=== PATIENT | female | born 1955 | race Caucasian/White ===

== ENCOUNTER 2016-04-10 08:12 | Inpatient (IN) | payer OTHER ==
[~2016-04-10] VITALS: Ht 139.7 cm; Wt 72.0 kg
[2016-04-10] VITALS (7 sets, daily range): BP systolic 92–117; BP diastolic 46–62
[~2016-04-10 08:12] MED LIST: ADVAIR HFA120 INHALA IH; ALBUTEROL SULF8.5 GM IH; AMARYL1 MG PO; AMITRIPTYLINE H25 MG PO; AMITRIPTYLINE100 MG PO; AMITRIPTYLINE150 MG PO; ASPIR 8181 M1 PO; ASPIRIN325 MG PO; AUGMENTIN500 MG PO; BACTRIM,SEPT1 TABLET PO; BUDESONIDE0.5 MG/2 M IH; CATAPRES0.1 MG PO; CEFTIN500 MG PO; CHANTIX0.5 MG PO; CIPRO250 MG PO; CLONAZEPAM0.5 MG PO; CLONIDINE HCL0.1 MG PO; COLACE100 MG PO; DELTASONE10 MG PO; DULCOLAX5 MG PO; DURAGESIC50 MCG TD; Duragesic TD; ELAVIL150 MG PO; ELAVIL25 MG PO; ENDOCET 5-3251 EACH PO; ENDOCET 7.5-501 EACH PO; ESCITALOPRAM OX20 MG PO; Elavil PO; FENTANYL1 EAC1 TD; FLAGYL250 MG PO; FLONASE16 G1 BOTH NARES; GABAPENTIN100 MG PO; GABAPENTIN300 MG PO; GABAPENTIN400 MG PO; GLIMEPIRIDE1 MG PO; GLIMEPIRIDE2 MG PO; GLUCOPHAGE XR750 MG PO; GLUCOPHAGE1000 M1 PO; GLUCOPHAGE1000 MG PO; KEFLEX500 MG PO; KLONOPIN0.5 M1 PO; KlonoPIN PO; LANTUS 10100 UNITS/ SC; LANTUS 3 M100 UNITS/ SC; LANTUS 3 M100 UNITS1 SC; LANTUS100 UNIT/1 SQ; LAXATIVE SUPPO1 EACH PR; LEVAQUIN500 MG PO; LEVAQUIN750 MG PO; LEVEMIR FL100 UNIT/1 SC; LEXAPRO20 MG PO; LISINOPRIL10 MG PO; LISINOPRIL5 MG PO; LO-DOSE ASPIRIN81 M2 PO; LOPRESSOR25 MG PO; LOVENOX40 MG/0.4 SC; METFORMIN HCL750 MG PO; METOPROLOL TART25 MG PO; MUCINEX600 MG PO; MUCUS ER600 MG PO; Medrol Dosepak PO; NEURONTIN300 MG PO; NEURONTIN400 MG PO; NOVOLIN N100 UNIT/1 SQ; NOVOLIN N100 UNITS/ SC; Neurontin PO; OXYCODONE-ACET1 EACH PO; OXYCODONE-APAP1 EAC6 PO; PERCOCET 5/31 TABLET PO; PERCOCET 7.51 TABLET PO; PLAVIX75 MG PO; PRAVASTATIN SOD80 MG PO; PREDNISONE10 MG PO; PREDNISONE20 MG PO; PREDNISONE50 MG PO; PROAIR HFA8.5 GM IH; PROPOXYPHENE HC65 MG PO; PROVENTIL2.5 MG/3 M IH; PULMICORT0.5 MG/21 IH; Percocet 7.5/500,End PO; Proventil,Ventolin H IH; ROBITUSSIN100 MG/5 M PO; SIMVASTATIN40 M1 PO; SIMVASTATIN40 MG PO; SPIRIVA1 INHALATI IH; TESSALON PERLE100 MG PO; VENTOLIN HFA18 GM IH; ZESTRIL,PRINIVI20 MG PO; ZESTRIL20 MG PO; ZESTRIL5 MG PO; ZITHROMAX250 MG PO; ZOCOR40 MG PO; ZOFRAN4 MG PO; ZYRTEC10 M2 PO; Zestril,Prinivil PO; Zocor PO
[2016-04-10 09:05] LABS: POINT-OF-CARE METER ID UU13113702
[2016-04-10 09:44] LABS: HEMATOCRIT 36.2 % (36.0-46.0); MCH 28.8 PG (29.0-34.0); MCHC 30.1 G/DL (30.0-36.0); MCV 95.5 FL (83-99); MEAN PLAT.VOLUME 10.3 uM^3 (9.5-12.4); PLATELET COUNT 481 K/uL (156-360); RBC DIS.WIDTH-CV 18.8 % (11.8-14.6); RBC DIS.WIDTH-SD 63.5 % (39-53); RED BLOOD COUNT 3.79 M/uL (3.80-5.20); WHITE BLOOD COUNT 21.1 K/uL (4.1-10.2)
[2016-04-10 09:47] LABS: EOSINOPHIL (%) 0 % (0-5); IMMATURE GRANULOCYTE (%) 0.5 % (0.0-0.7); IMMATURE GRANULOCYTE COUNT 1.1 K/uL; LYMPHOCYTE COUNT 1.3 K/uL (1.0-2.8); MONOCYTE (%) 5.5 % (3-12); MONOCYTE COUNT 1.2 K/uL (0-0.8); NEUTROPHIL (%) 87.5 % (45-76); NEUTROPHIL COUNT 18.5 K/uL (1.8-6.4)
[2016-04-10 09:57] LABS: CHLORIDE 102 mEq/L (99-109); POTASSIUM 5.7 mEq/L (3.7-5.4); SODIUM 139 mEq/L (136-147)
[2016-04-10 09:59] LABS: GLUCOSE 191 mg/dL (70-99)
[2016-04-10 10:01] LABS: ANION GAP 20 MEQ/L (2-14); TOTAL BILIRUBIN 0.5 mg/dL (0.0-1.0)
[2016-04-10 10:03] LABS: ALKALINE PHOSPHATASE 91 IU/L (3-129); GFR ESTIMATE (CALCULATED) 30 mL/min/
[2016-04-10 10:04] LABS: UREA NITROGEN (BUN) 28 mg/dL (9-23)
[2016-04-10 10:35] LABS: C DIFF TOXIN NEGATIVE (NEGATIVE); PROBE CHECK PASS; SPECIMEN PROCESSING CONTROL PASS
[2016-04-10 11:15] LABS: ADD MIUA? YES; BILIRUBIN MODERATE; BLOOD NEGATIVE; COLOR AMBER ((YELLOW)); GLUCOSE (STRIP) NEGATIVE; KETONES 5; LEUKOCYTES TRACE; NITRITE NEGATIVE; PROTEIN (STRIP) 100; SPECIFIC GRAVITY 1.027 (1.000-1.030)
[2016-04-10 11:49] LABS: BACTERIA RARE /HPF; EPITHELIAL CELLS RARE /HPF; MUCUS TRACE /LPF; RED BLOOD CELLS 0-5 /HPF (0-5); UCUL ADDED? NO; WHITE BLOOD CELLS 0-5 /HPF (0-5)
[2016-04-10 12:11] LABS: ICTOTEST NEGATIVE
[2016-04-10] MEDS ORDERED: GLUCOPHAGE850 MG PO (12:56)
[2016-04-10] MEDS ORDERED: AMITRIPTYLINE150 MG PO (12:58)
[2016-04-10] MEDS ORDERED: LISINOPRIL2.5 MG PO (12:58)
[2016-04-10] MEDS ORDERED: ASPIRIN325 MG PO (12:59)
[2016-04-10] MEDS ORDERED: OXYCODONE-APAP1 EAC6 PO (12:59)
[2016-04-10] MEDS ORDERED: GABAPENTIN400 MG PO (12:59)
[2016-04-10 15:53] LABS: POINT-OF-CARE METER ID UU14162508
[2016-04-10 16:10] LABS: TROP-I INTERPRETATION NEGATIVE; TROPONIN-I 0.01 ng/mL (0.0-0.30)
[2016-04-10 16:33] LABS: D-DIMER ELISA > 4.00 mg/L FEU (< 0.57)
[2016-04-11] VITALS (7 sets, daily range): BP systolic 89–131; BP diastolic 40–65
[2016-04-11 07:55] LABS: ANION GAP 12 MEQ/L (2-14); CHLORIDE 104 MEQ/L (99-109); GFR ESTIMATE (CALCULATED) 41 mL/min/; GLUCOSE 125 mg/dL (70-99); SAMPLE HEMOLYSIS CHECK 0; SAMPLE ICTERIC CHECK 0; SAMPLE LIPEMIA CHECK 0; SODIUM 137 MEQ/L (136-147)
[2016-04-11 08:07] LABS: POTASSIUM 4.3 MEQ/L (3.7-5.4); UREA NITROGEN (BUN) 48 mg/dL (9-23)
[2016-04-11 08:31] LABS: EOSINOPHIL (%) 0.2 % (0-5); HEMATOCRIT 28.1 % (36.0-46.0); IMMATURE GRANULOCYTE (%) 0.2 % (0.0-0.7); IMMATURE GRANULOCYTE COUNT 0.2 K/uL; LYMPHOCYTE COUNT 1.2 K/uL (1.0-2.8); MCH 28.5 PG (29.0-34.0); MCHC 31.3 G/DL (30.0-36.0); MEAN PLAT.VOLUME 10.3 uM^3 (9.5-12.4); MONOCYTE (%) 14.3 % (3-12); MONOCYTE COUNT 1.2 K/uL (0-0.8); NEUTROPHIL COUNT 6.1 K/uL (1.8-6.4); PLATELET COUNT 416 K/uL (156-360); RBC DIS.WIDTH-CV 18.2 % (11.8-14.6); RED BLOOD COUNT 3.09 M/uL (3.80-5.20)
[2016-04-11 09:09] LABS: MCV 90.9 FL (83-99); WHITE BLOOD COUNT 8.7 K/uL (4.1-10.2)
[2016-04-11 10:25] LABS: HEMATOLOGY COMMENT 1 SMEAR COMPATIBLE; USER ID CL
[2016-04-11 13:02] LABS: TROP-I INTERPRETATION NEGATIVE; TROPONIN-I 0.02 ng/mL (0.0-0.30)
[2016-04-11 15:39] LABS: MAGNESIUM 1.6 mg/dl (1.3-2.7)
[2016-04-11 17:24] LABS: BASE EXCESS -2.7 mEq/L (-3 to +3); BICARBONATE 21.7 mEq/L (22-26); CARBOXY HGB 1.2 % (0-5); COMMENTS - BLOOD GASES A+C+; DEVICE NC; METHEMOGLOBIN 1.7 % (0-1.5); O2 FLOW 1 L/MIN; PCO2 35 mm Hg (35-45); PO2 68 mm Hg (80-100); SITE RR; TOTAL RESP RATE 22 resp/min
[2016-04-11 19:02] LABS: INTER. NORMALIZED RATIO 1.3; PROTHROMBIN TIME 13.6 (9.2-11.2); PTT 31.3 (25-32)
[2016-04-12 02:35] LABS: POINT-OF-CARE METER ID UU14162508
[2016-04-12 03:07] LABS: HEMATOCRIT 27.1 % (36.0-46.0); MCH 28.5 PG (29.0-34.0); MCV 91.9 FL (83-99); MEAN PLAT.VOLUME 9.5 uM^3 (9.5-12.4); PLATELET COUNT 384 K/uL (156-360); RBC DIS.WIDTH-CV 18.1 % (11.8-14.6); RBC DIS.WIDTH-SD 58.3 % (39-53); RED BLOOD COUNT 2.95 M/uL (3.80-5.20); WHITE BLOOD COUNT 6.8 K/uL (4.1-10.2)
[2016-04-12 03:11] LABS: CHLORIDE 111 mEq/L (99-109); SODIUM 141 mEq/L (136-147)
[2016-04-12 03:14] LABS: ANION GAP 10 MEQ/L (2-14)
[2016-04-12 03:17] LABS: GFR ESTIMATE (CALCULATED) > 59 mL/min/
[2016-04-12 03:18] LABS: UREA NITROGEN (BUN) 42 mg/dL (9-23)
[2016-04-12 03:24] LABS: ALKALINE PHOSPHATASE 54 IU/L (3-129); GLUCOSE 77 mg/dL (70-99); POTASSIUM 3.4 mEq/L (3.7-5.4); TOTAL BILIRUBIN 0.3 mg/dL (0.0-1.0)
[2016-04-12 03:47] VITALS: BP 116/59
[2016-04-12 04:41] LABS: HEMATOLOGY COMMENT 1 REV
[2016-04-12 04:42] LABS: EOSINOPHIL (%) 0.6 % (0-5); IMMATURE GRANULOCYTE (%) 0.4 % (0.0-0.7); IMMATURE GRANULOCYTE COUNT 0.3 K/uL; MONOCYTE (%) 11.5 % (3-12); MONOCYTE COUNT 0.8 K/uL (0-0.8); NEUTROPHIL COUNT 4.9 K/uL (1.8-6.4)
[2016-04-12 08:21] VITALS: BP 98/54
[2016-04-12 12:01] VITALS: BP 164/77
[2016-04-12 12:02] LABS: POINT-OF-CARE METER ID UU14162508
[2016-04-12 16:07] LABS: INTERNAL CONTROL VALID? YES
[2016-04-12 16:48] LABS: POINT-OF-CARE METER ID UU14162508
[2016-04-12 16:56] VITALS: BP 173/82
[2016-04-12 20:10] VITALS: BP 143/72
[2016-04-12 21:51] LABS: POINT-OF-CARE METER ID UU14162508
[2016-04-12 23:39] VITALS: BP 162/67
[2016-04-13 04:04] VITALS: BP 128/63
[2016-04-13 06:37] LABS: POINT-OF-CARE METER ID UU14162508
[2016-04-13 08:23] VITALS: BP 159/72
[2016-04-13 10:30] LABS: HEMATOCRIT 28.5 % (36.0-46.0); MCH 27.5 PG (29.0-34.0); MCHC 29.8 G/DL (30.0-36.0); MCV 92.2 FL (83-99); MEAN PLAT.VOLUME 9.8 uM^3 (9.5-12.4); PLATELET COUNT 422 K/uL (156-360); RBC DIS.WIDTH-CV 18.1 % (11.8-14.6); RBC DIS.WIDTH-SD 61.4 % (39-53); RED BLOOD COUNT 3.09 M/uL (3.80-5.20)
[2016-04-13 10:58] LABS: ANION GAP 7 MEQ/L (2-14); CHLORIDE 105 MEQ/L (99-109); GFR ESTIMATE (CALCULATED) > 59 mL/min/; GLUCOSE 82 mg/dL (70-99); POTASSIUM 3.6 MEQ/L (3.7-5.4); SAMPLE HEMOLYSIS CHECK 0; SAMPLE ICTERIC CHECK 0; SAMPLE LIPEMIA CHECK 0; SODIUM 138 MEQ/L (136-147)
[2016-04-13 10:59] LABS: UREA NITROGEN (BUN) 12 mg/dL (9-23)
[2016-04-13 11:08] LABS: POINT-OF-CARE METER ID UU14162508
[2016-04-13 11:17] VITALS: BP 185/77
[2016-04-13 16:26] VITALS: BP 130/65
[2016-04-13 17:34] LABS: POINT-OF-CARE METER ID UU14162508
[2016-04-13 19:49] VITALS: BP 149/73
[2016-04-13 23:37] VITALS: BP 147/78
[2016-04-14] VITALS (7 sets, daily range): BP systolic 106–163; BP diastolic 58–78
[2016-04-14 06:48] LABS: HEMATOCRIT 27.3 % (36.0-46.0); MCH 27.4 PG (29.0-34.0); MCHC 29.7 G/DL (30.0-36.0); MCV 92.2 FL (83-99); MEAN PLAT.VOLUME 9.9 uM^3 (9.5-12.4); PLATELET COUNT 414 K/uL (156-360); RBC DIS.WIDTH-CV 17.8 % (11.8-14.6); RBC DIS.WIDTH-SD 60.7 % (39-53); RED BLOOD COUNT 2.96 M/uL (3.80-5.20); WHITE BLOOD COUNT 4.6 K/uL (4.1-10.2)
[2016-04-14 07:18] LABS: ANION GAP 10 MEQ/L (2-14); CHLORIDE 104 MEQ/L (99-109); GFR ESTIMATE (CALCULATED) > 59 mL/min/; GLUCOSE 71 mg/dL (70-99); POTASSIUM 3.3 MEQ/L (3.7-5.4); SAMPLE HEMOLYSIS CHECK 0; SAMPLE ICTERIC CHECK 0; SAMPLE LIPEMIA CHECK 0; SODIUM 139 MEQ/L (136-147); UREA NITROGEN (BUN) 8 mg/dL (9-23)
[2016-04-14 07:21] LABS: MAGNESIUM 1.3 mg/dl (1.3-2.7)
[2016-04-14 08:08] LABS: BASOPHIL COUNT 0.1 K/uL (0-0.1); EOSINOPHIL (%) 3.9 % (0-5); EOSINOPHIL COUNT 0.2 K/uL (0-0.3); HEMATOLOGY COMMENT 1 SMEAR COMPATIBLE; IMMATURE GRANULOCYTE (%) 0.2 % (0.0-0.7); LYMPHOCYTE COUNT 1.1 K/uL (1.0-2.8); MONOCYTE (%) 17.1 % (3-12); MONOCYTE COUNT 0.8 K/uL (0-0.8); NEUTROPHIL (%) 53.2 % (45-76); NEUTROPHIL COUNT 2.5 K/uL (1.8-6.4); PLAT.SUFFICIENCY INCREASED; USER ID TLW
[2016-04-14 08:13] LABS: METH RESISTANT S AUREUS PCR NEGATIVE (NEGATIVE)
[2016-04-14 08:19] LABS: PROBE CHECK PASS; SPECIMEN PROCESSING CONTROL PASS
[2016-04-14 08:43] LABS: POINT-OF-CARE METER ID UU13113675
[2016-04-14 12:13] LABS: POINT-OF-CARE METER ID UU14162508
[2016-04-14 21:18] LABS: POINT-OF-CARE METER ID UU14162508
[2016-04-15 03:54] VITALS: BP 150/78
[2016-04-15 07:23] LABS: ANION GAP 9 MEQ/L (2-14); CHLORIDE 105 MEQ/L (99-109); GFR ESTIMATE (CALCULATED) > 59 mL/min/; GLUCOSE 76 mg/dL (70-99); HEMATOCRIT 28.2 % (36.0-46.0); MAGNESIUM 1.4 mg/dl (1.3-2.7); MCH 28.1 PG (29.0-34.0); MCHC 30.1 G/DL (30.0-36.0); MCV 93.1 FL (83-99); PLATELET COUNT 404 K/uL (156-360); POTASSIUM 3.8 MEQ/L (3.7-5.4); RBC DIS.WIDTH-CV 17.7 % (11.8-14.6); RBC DIS.WIDTH-SD 60.6 % (39-53); RED BLOOD COUNT 3.03 M/uL (3.80-5.20); SAMPLE HEMOLYSIS CHECK 0; SAMPLE ICTERIC CHECK 0; SAMPLE LIPEMIA CHECK 0; SODIUM 140 MEQ/L (136-147); UREA NITROGEN (BUN) 6 mg/dL (9-23)
[2016-04-15 07:31] LABS: WHITE BLOOD COUNT 6.1 K/uL (4.1-10.2)
[2016-04-15 08:00] LABS: BASOPHIL COUNT 0.1 K/uL (0-0.1); EOSINOPHIL (%) 3.9 % (0-5); EOSINOPHIL COUNT 0.2 K/uL (0-0.3); HEMATOLOGY COMMENT 1 SMEAR COMPATIBLE; IMMATURE GRANULOCYTE (%) 1.8 % (0.0-0.7); IMMATURE GRANULOCYTE COUNT 0.1 K/uL; LYMPHOCYTE COUNT 1.6 K/uL (1.0-2.8); MONOCYTE (%) 18.4 % (3-12); MONOCYTE COUNT 1.1 K/uL (0-0.8); NEUTROPHIL (%) 47.8 % (45-76); NEUTROPHIL COUNT 2.9 K/uL (1.8-6.4); PLAT.SUFFICIENCY INCREASED; USER ID TLW
[2016-04-15 08:02] VITALS: BP 116/67
[2016-04-15 12:00] VITALS: BP 159/69
[2016-04-15 16:00] VITALS: BP 123/61
[2016-04-15 20:00] VITALS: BP 142/61
[2016-04-15 23:42] VITALS: BP 180/72
[2016-04-16 03:29] VITALS: BP 141/64
[2016-04-16 08:14] LABS: HEMATOCRIT 28.6 % (36.0-46.0); MCH 27.8 PG (29.0-34.0); MCHC 29.7 G/DL (30.0-36.0); MCV 93.5 FL (83-99); MEAN PLAT.VOLUME 9.5 uM^3 (9.5-12.4); PLATELET COUNT 427 K/uL (156-360); RBC DIS.WIDTH-CV 17.8 % (11.8-14.6); RBC DIS.WIDTH-SD 60.9 % (39-53); RED BLOOD COUNT 3.06 M/uL (3.80-5.20); WHITE BLOOD COUNT 6.5 K/uL (4.1-10.2)
[2016-04-16 08:17] VITALS: BP 136/67
[2016-04-16] MEDS ORDERED: CYANOCOBAL1000 MCG/2 SC (10:42)
[2016-04-16] MEDS ORDERED: FLORASTOR250 MG PO (10:42)
[2016-04-16] MEDS ORDERED: Thiamine,Vitamin B1 PO (10:42)
[2016-04-16] MEDS ORDERED: BACTRIM,SEPT1 TABLET PO (10:42)
[2016-04-16 11:43] VITALS: BP 135/63
== END 2016-04-16 12:23 | disposition home or self-care (01) | DRG 853 ==
LOC: EME → EDBD 08:12 → EME 08:12 → EDOF 12:43 → 2EAST 12:43
PROVIDERS: Emergency Medicine; Hospitalist; Internal Medicine
PROC: 06H03DZ Insertion of Intraluminal Device into Inferior Vena Cava, Percutaneous Approach (ICD-10-PCS; principal; 2016-04-14)
DX: A41.9 Sepsis, unspecified organism (principal); J98.11 Atelectasis; G93.40 Encephalopathy, unspecified; N17.9 Acute kidney failure, unspecified; I82.441 Acute embolism and thrombosis of right tibial vein; E87.2 Acidosis; A09 Infectious gastroenteritis and colitis, unspecified; I10 Essential (primary) hypertension; E11.9 Type 2 diabetes mellitus without complications; I25.10 Atherosclerotic heart disease of native coronary artery without angina pectoris; R55 Syncope and collapse; T37.3X5A Adverse effect of other antiprotozoal drugs, initial encounter; E87.5 Hyperkalemia; E53.9 Vitamin B deficiency, unspecified; K80.20 Calculus of gallbladder without cholecystitis without obstruction; I95.9 Hypotension, unspecified; E86.0 Dehydration; R29.6 Repeated falls; J44.9 Chronic obstructive pulmonary disease, unspecified; E78.5 Hyperlipidemia, unspecified; D53.9 Nutritional anemia, unspecified; Z95.5 Presence of coronary angioplasty implant and graft; Z79.4 Long term (current) use of insulin; Z87.891 Personal history of nicotine dependence; E87.6 Hypokalemia; R19.7 Diarrhea, unspecified
CPT/HCPCS: 36600; 70450; 71010; 72148; 74176; 76705; 78580; 80048; 80053; 81003; 82140; 82272; 82550 91; 82607; 82803; 82948; 83605; 83735; 84100; 84443; 84484; 85025; 85027; 85379; 85610; 85730; 87040; 87081; 87177; 87493; 87506; 87641; 93005; 93970; 94640; 94640 76; 94760; 94799; 95819; 99202; 99281; 99285; A9540; C1769; J1644; J1650; J1956; J2250; J2405; J2543; J2765; J3010; J3411; J3420; J7030; J7040; J7050; S0030

== ENCOUNTER 2016-05-01 09:27 | Emergency (ER) | payer OTHER ==
[~2016-05-01] VITALS: Ht 147.3 cm; Wt 66.7 kg
[~2016-05-01 09:27] MED LIST changes: +CYANOCOBAL1000 MCG/2 SC; +FLORASTOR250 MG PO; +GLUCOPHAGE850 MG PO; +LISINOPRIL2.5 MG PO; +Thiamine,Vitamin B1 PO
[2016-05-01 10:35] LABS: BASOPHIL COUNT 0.1 K/uL (0-0.1); EOSINOPHIL (%) 2.7 % (0-5); EOSINOPHIL COUNT 0.3 K/uL (0-0.3); HEMATOCRIT 31.8 % (36.0-46.0); IMMATURE GRANULOCYTE (%) 0.1 % (0.0-0.7); IMMATURE GRANULOCYTE COUNT 0.1 K/uL; LYMPHOCYTE COUNT 2.9 K/uL (1.0-2.8); MCH 27.9 PG (29.0-34.0); MCHC 29.6 G/DL (30.0-36.0); MCV 94.4 FL (83-99); MEAN PLAT.VOLUME 9.4 uM^3 (9.5-12.4); MONOCYTE (%) 10.7 % (3-12); NEUTROPHIL (%) 54.8 % (45-76); NEUTROPHIL COUNT 5.1 K/uL (1.8-6.4); PLATELET COUNT 758 K/uL (156-360); RBC DIS.WIDTH-SD 55.9 % (39-53); RED BLOOD COUNT 3.37 M/uL (3.80-5.20); WHITE BLOOD COUNT 9.3 K/uL (4.1-10.2)
[2016-05-01 10:41] LABS: CHLORIDE 101 mEq/L (99-109); POTASSIUM 4.5 mEq/L (3.7-5.4); SODIUM 138 mEq/L (136-147)
[2016-05-01 10:43] LABS: GLUCOSE 53 mg/dL (70-99)
[2016-05-01 10:44] LABS: ANION GAP 11 MEQ/L (2-14)
[2016-05-01 10:47] LABS: GFR ESTIMATE (CALCULATED) > 59 mL/min/
[2016-05-01 10:48] LABS: UREA NITROGEN (BUN) 26 mg/dL (9-23)
[2016-05-01 12:55] LABS: POINT-OF-CARE METER ID UU13113702
[2016-05-01 14:00] LABS: POINT-OF-CARE METER ID UU13113702
[2016-05-01 15:21] VITALS: BP 92/77
== END 2016-05-01 15:33 | disposition home or self-care (01) ==
LOC: EME → EDBD 09:27 → EME 09:27
PROVIDERS: Emergency Medicine
DX: S30.0XXA Contusion of lower back and pelvis, initial encounter (principal); R42 Dizziness and giddiness; W01.198A Fall on same level from slipping, tripping and stumbling with subsequent striking against other object, initial encounter; E11.9 Type 2 diabetes mellitus without complications; J44.9 Chronic obstructive pulmonary disease, unspecified; I10 Essential (primary) hypertension; I25.2 Old myocardial infarction; K21.9 Gastro-esophageal reflux disease without esophagitis; Z86.73 Personal history of transient ischemic attack (TIA), and cerebral infarction without residual deficits; I25.10 Atherosclerotic heart disease of native coronary artery without angina pectoris; Z98.61 Coronary angioplasty status; Z87.891 Personal history of nicotine dependence; Z79.82 Long term (current) use of aspirin; Z79.891 Long term (current) use of opiate analgesic; Z79.4 Long term (current) use of insulin; Z79.84 Long term (current) use of oral hypoglycemic drugs
CPT/HCPCS: 70450; 72100; 80048; 82948; 85025; 93005; 99281; 99285; G8978 GP CM; G8979 CJ; G8987 GO CL; G8988 GO CJ; J2270; J2405; J7030

== ENCOUNTER 2016-05-27 08:42 | Observation (INO) | payer OTHER ==
[~2016-05-27] VITALS: Ht 147.3 cm; Wt 68.5 kg
[2016-05-27 09:55] LABS: HEMATOCRIT 31.4 % (36.0-46.0); MCH 28.5 PG (29.0-34.0); MCHC 30.3 G/DL (30.0-36.0); MCV 94.3 FL (83-99); MEAN PLAT.VOLUME 9.7 uM^3 (9.5-12.4); RBC DIS.WIDTH-CV 15.6 % (11.8-14.6); RBC DIS.WIDTH-SD 53.7 % (39-53); RED BLOOD COUNT 3.33 M/uL (3.80-5.20); WHITE BLOOD COUNT 8.6 K/uL (4.1-10.2)
[2016-05-27 10:03] LABS: PLATELET COUNT 432 K/uL (156-360)
[2016-05-27 10:05] LABS: CHLORIDE 101 mEq/L (99-109); POTASSIUM 4.4 mEq/L (3.7-5.4); SODIUM 136 mEq/L (136-147)
[2016-05-27 10:07] LABS: GLUCOSE 195 mg/dL (70-99)
[2016-05-27 10:08] LABS: ANION GAP 9 MEQ/L (2-14)
[2016-05-27 10:11] LABS: GFR ESTIMATE (CALCULATED) > 59 mL/min/
[2016-05-27 10:12] LABS: UREA NITROGEN (BUN) 12 mg/dL (9-23)
[2016-05-27 10:44] LABS: TROP-I INTERPRETATION NEGATIVE; TROPONIN-I < 0.01 ng/mL (0.0-0.30)
[2016-05-27] MEDS ORDERED: ASPIR-LOW81 MG PO (12:08)
[2016-05-27] MEDS ORDERED: AMARYL2 MG PO (12:10)
[2016-05-27] MEDS ORDERED: DULCOLAX5 MG PO (12:14)
[2016-05-27] MEDS ORDERED: CLARITIN,ALAVAR10 MG PO (12:14)
[2016-05-27] MEDS ORDERED: FLONASE16 G1 BOTH NARES (12:14)
[2016-05-27 13:19] LABS: INFLUENZA A VIRAL ANTIGEN NEGATIVE; INFLUENZA B VIRAL ANTIGEN NEGATIVE
[2016-05-27 20:57] LABS: POINT-OF-CARE METER ID UU13113725
[2016-05-27 22:35] VITALS: BP 111/58
[2016-05-28 05:57] LABS: POINT-OF-CARE METER ID UU13113725; POINT-OF-CARE USER ID 611181321
[2016-05-28 06:24] LABS: HEMATOCRIT 31.3 % (36.0-46.0); MCH 27.8 PG (29.0-34.0); MCHC 30.4 G/DL (30.0-36.0); MCV 91.5 FL (83-99); MEAN PLAT.VOLUME 9.5 uM^3 (9.5-12.4); PLATELET COUNT 537 K/uL (156-360); RBC DIS.WIDTH-CV 15.3 % (11.8-14.6); RED BLOOD COUNT 3.42 M/uL (3.80-5.20); WHITE BLOOD COUNT 6.5 K/uL (4.1-10.2)
[2016-05-28 06:43] LABS: INTER. NORMALIZED RATIO 1.1; PROTHROMBIN TIME 11.4 (9.2-11.2)
[2016-05-28 06:47] LABS: ANION GAP 10 MEQ/L (2-14); CHLORIDE 99 MEQ/L (99-109); GFR ESTIMATE (CALCULATED) > 59 mL/min/; GLUCOSE 221 mg/dL (70-99); POTASSIUM 4.8 MEQ/L (3.7-5.4); SAMPLE HEMOLYSIS CHECK 0; SAMPLE ICTERIC CHECK 0; SAMPLE LIPEMIA CHECK 0; SODIUM 135 MEQ/L (136-147); UREA NITROGEN (BUN) 15 mg/dL (9-23)
[2016-05-28] MEDS ORDERED: PREDNISONE10 MG PO (08:04)
[2016-05-28] MEDS ORDERED: AZITHROMYCIN500 M1 PO (08:04)
[2016-05-28 08:52] VITALS: BP 139/72
[2016-05-28 09:48] LABS: INTERNAL CONTROL VALID? YES
== END 2016-05-28 11:07 | disposition home health service (06) ==
LOC: EME 08:42 → 5EAST 11:45 → EDOF 11:45 → 5EAST 16:35
PROVIDERS: Internal Medicine
DX: J44.1 Chronic obstructive pulmonary disease with (acute) exacerbation (principal); I25.10 Atherosclerotic heart disease of native coronary artery without angina pectoris; Z95.5 Presence of coronary angioplasty implant and graft; I73.9 Peripheral vascular disease, unspecified; Z86.73 Personal history of transient ischemic attack (TIA), and cerebral infarction without residual deficits; I10 Essential (primary) hypertension; E78.5 Hyperlipidemia, unspecified; E11.9 Type 2 diabetes mellitus without complications; M19.90 Unspecified osteoarthritis, unspecified site; Z87.891 Personal history of nicotine dependence; Z86.718 Personal history of other venous thrombosis and embolism
CPT/HCPCS: 71020; 80048; 82272; 82948; 84484; 85027; 85610; 87502; 93005; 94640; 99202; 99281; 99285; G0378; J0456; J1650; J1815; J2930; J7512

== ENCOUNTER 2016-07-07 11:28 | Inpatient (IN) | payer OTHER ==
[~2016-07-07] VITALS: Ht 132.1 cm; Wt 80.4 kg
[~2016-07-07 11:28] MED LIST changes: +AMARYL2 MG PO; +ASPIR-LOW81 MG PO; +AZITHROMYCIN500 M1 PO; +CLARITIN,ALAVAR10 MG PO
[2016-07-07 11:48] LABS: HEMATOCRIT 32.7 % (36.0-46.0); MCH 28.1 PG (29.0-34.0); MCHC 30.9 G/DL (30.0-36.0); MCV 91.1 FL (83-99); MEAN PLAT.VOLUME 9.8 uM^3 (9.5-12.4); PLATELET COUNT 651 K/uL (156-360); RBC DIS.WIDTH-CV 15.6 % (11.8-14.6); RBC DIS.WIDTH-SD 51.6 % (39-53); RED BLOOD COUNT 3.59 M/uL (3.80-5.20); WHITE BLOOD COUNT 11.4 K/uL (4.1-10.2)
[2016-07-07 12:13] LABS: INTER. NORMALIZED RATIO 1.2; PROTHROMBIN TIME 12.1 (9.2-11.2)
[2016-07-07 12:22] LABS: TROP-I INTERPRETATION NEGATIVE; TROPONIN-I 0.02 ng/mL (0.0-0.30)
[2016-07-07 12:38] LABS: ADD MIUA? YES; BILIRUBIN MODERATE; BLOOD NEGATIVE; COLOR AMBER ((YELLOW)); GLUCOSE (STRIP) NEGATIVE; KETONES 5; LEUKOCYTES NEGATIVE; NITRITE NEGATIVE; PROTEIN (STRIP) 30; SPECIFIC GRAVITY 1.024 (1.000-1.030)
[2016-07-07 12:52] LABS: BACTERIA RARE /HPF; EPITHELIAL CELLS RARE /HPF; HYALINE CASTS TNTC /LPF; MUCUS TRACE /LPF; RED BLOOD CELLS 0-5 /HPF (0-5); WHITE BLOOD CELLS 0-5 /HPF (0-5)
[2016-07-07 13:03] LABS: ANION GAP 17 MEQ/L (2-14); CHLORIDE 99 MEQ/L (99-109); POTASSIUM 5.6 MEQ/L (3.7-5.4); SAMPLE HEMOLYSIS CHECK 0; SAMPLE ICTERIC CHECK 0; SAMPLE LIPEMIA CHECK 0; SODIUM 135 MEQ/L (136-147); TOTAL BILIRUBIN 0.4 MG/DL (0.0-1.0)
[2016-07-07 13:07] LABS: ICTOTEST NEGATIVE
[2016-07-07 13:09] LABS: ALKALINE PHOSPHATASE 81 IU/L (3-129); GFR ESTIMATE (CALCULATED) 25 mL/min/; GLUCOSE 183 mg/dL (70-99); UREA NITROGEN (BUN) 37 mg/dL (9-23)
[2016-07-07] MEDS ORDERED: IRON325 M1 PO (15:23)
[2016-07-07] MEDS ORDERED: TRAVATAN Z5 ML BOTH EYES (15:23)
[2016-07-07] MEDS ORDERED: VITAMIN B-1100 MG PO (15:23)
[2016-07-07 17:03] LABS: C DIFF TOXIN NEGATIVE (NEGATIVE)
[2016-07-07 17:19] LABS: PROBE CHECK PASS; SPECIMEN PROCESSING CONTROL PASS
[2016-07-07 18:18] VITALS: BP 148/68
[2016-07-07 18:24] LABS: BASE EXCESS -5.3 mEq/L (-3 to +3); BICARBONATE 18.2 mEq/L (22-26); CARBOXY HGB 1.3 % (0-5); METHEMOGLOBIN 1.7 % (0-1.5); PO2 66 mm Hg (80-100); pH 7.42 (7.35-7.45)
[2016-07-07 18:25] LABS: PCO2 28 mm Hg (35-45)
[2016-07-07 18:26] LABS: COMMENTS - BLOOD GASES A+C+; DEVICE RA; SITE RR
[2016-07-07 19:00] VITALS: BP 118/51
[2016-07-07 19:19] LABS: MAGNESIUM 1.8 mg/dl (1.3-2.7)
[2016-07-07 20:00] VITALS: BP 113/50
[2016-07-07 21:00] VITALS: BP 118/53
[2016-07-07 21:17] LABS: POINT-OF-CARE METER ID UU14174217
[2016-07-07 21:36] LABS: METH RESISTANT S AUREUS PCR NEGATIVE (NEGATIVE)
[2016-07-07 21:47] LABS: PROBE CHECK PASS; SPECIMEN PROCESSING CONTROL PASS
[2016-07-07 22:00] VITALS: BP 114/52
[2016-07-07 22:16] LABS: AMYLASE 23 IU/L (1-118); CHLORIDE 108 mEq/L (99-109); SODIUM 138 mEq/L (136-147)
[2016-07-07 22:17] LABS: GLUCOSE 214 mg/dL (70-99)
[2016-07-07 22:18] LABS: POTASSIUM 3.9 mEq/L (3.7-5.4)
[2016-07-07 22:19] LABS: ANION GAP 12 MEQ/L (2-14)
[2016-07-07 22:21] LABS: GFR ESTIMATE (CALCULATED) > 59 mL/min/
[2016-07-07 22:22] LABS: UREA NITROGEN (BUN) 27 mg/dL (9-23)
[2016-07-07 22:24] LABS: LIPASE 5 U/L (1.0-51.0)
[2016-07-07 23:00] VITALS: BP 122/56
[2016-07-07 23:51] LABS: POINT-OF-CARE METER ID UU14174217
[2016-07-08] VITALS (25 sets, daily range): BP systolic 100–143; BP diastolic 34–71
[2016-07-08 00:48] LABS: CREATINE KINASE 248 IU/L (1-294); TOTAL CK 248 IU/L (1-294)
[2016-07-08 00:53] LABS: TROP-I INTERPRETATION NEGATIVE; TROPONIN-I 0.03 ng/mL (0.0-0.30)
[2016-07-08 00:54] LABS: CK-MB 23.6 ng/mL (0.0-4.9)
[2016-07-08 02:55] LABS: AMPHETAMINES QUANT VALUE 49.6 NG/ML; BARBITUATES QUANT VALUE 13.9 NG/ML; BENZODIAZEPINES QUANT VALUE 56.2 NG/ML; BENZODIAZEPINES, URINE SCREEN Negative (200 ng/mL); OPIATES QUANTITATIVE VALUE 364.2 NG/ML
[2016-07-08 02:56] LABS: MARIJUANA QUANT VALUE 8.2 NG/ML
[2016-07-08 03:26] LABS: UR CREATININE CONCENTRATION 23.1 MG/DL
[2016-07-08 05:32] LABS: CHLORIDE 108 mEq/L (99-109); POTASSIUM 3.9 mEq/L (3.7-5.4); SODIUM 137 mEq/L (136-147)
[2016-07-08 05:33] LABS: MAGNESIUM 1.4 mg/dL (1.3-2.7)
[2016-07-08 05:34] LABS: GLUCOSE 201 mg/dL (70-99)
[2016-07-08 05:36] LABS: ANION GAP 8 MEQ/L (2-14)
[2016-07-08 05:38] LABS: GFR ESTIMATE (CALCULATED) > 59 mL/min/
[2016-07-08 05:39] LABS: UREA NITROGEN (BUN) 20 mg/dL (9-23)
[2016-07-08 05:40] LABS: TROP-I INTERPRETATION NEGATIVE; TROPONIN-I 0.06 ng/mL (0.0-0.30)
[2016-07-08 05:41] LABS: CREATINE KINASE 177 IU/L (1-294); TOTAL CK 177 IU/L (1-294)
[2016-07-08 06:19] LABS: HEMATOCRIT 28.8 % (36.0-46.0); MCH 27.9 PG (29.0-34.0); MCHC 31.3 G/DL (30.0-36.0); MCV 89.2 FL (83-99); MEAN PLAT.VOLUME 9.7 uM^3 (9.5-12.4); PLATELET COUNT 512 K/uL (156-360); RBC DIS.WIDTH-CV 15.4 % (11.8-14.6); RED BLOOD COUNT 3.23 M/uL (3.80-5.20); WHITE BLOOD COUNT 9.3 K/uL (4.1-10.2)
[2016-07-08 08:01] LABS: ATYPICAL LYMPHOCYTE 1.7 %; BAND NEUTROPHILS 32.5 % (0-8.0); EOSINOPHIL ABS CT 0; INSTRUMENT ABS NEUTROPHIL CT 6.4 K/uL; LYMPHOCYTES 11.4 % (15.0-45.0); METAMYELOCYTES 1.7 %; MYELOCYTES 0.9 %; PLAT.SUFFICIENCY INCREASED; SEG.NEUTROPHILS 31.6 % (46.0-76.0)
[2016-07-08 14:20] LABS: CREATINE KINASE 100 IU/L (1-294); TOTAL CK 100 IU/L (1-294)
[2016-07-08 14:24] LABS: TROP-I INTERPRETATION NEGATIVE; TROPONIN-I 0.29 ng/mL (0.0-0.30)
[2016-07-08 15:03] LABS: CK-MB 8.3 ng/mL (0.0-4.9)
[2016-07-08 17:01] LABS: HEMATOCRIT 27.4 % (36.0-46.0); MCV 89.8 FL (83-99)
[2016-07-08 17:24] LABS: CREATINE KINASE 82 IU/L (1-294); TOTAL CK 82 IU/L (1-294)
[2016-07-08 17:29] LABS: TROP-I INTERPRETATION POSITIVE; TROPONIN-I 0.72 ng/mL (0.0-0.30)
[2016-07-08 18:00] LABS: CK-MB 7.7 ng/mL (0.0-4.9)
[2016-07-08 18:17] LABS: POINT-OF-CARE METER ID UU13113731
[2016-07-08 23:10] LABS: POINT-OF-CARE METER ID UU14162636; POINT-OF-CARE USER ID LABHNS84
[2016-07-08 23:43] LABS: TROP-I INTERPRETATION INDETERMINATE; TROPONIN-I 0.57 ng/mL (0.0-0.30)
[2016-07-09] VITALS (23 sets, daily range): BP systolic 119–159; BP diastolic 53–116
[2016-07-09 05:28] LABS: POINT-OF-CARE METER ID UU14162636; POINT-OF-CARE USER ID LABHNS84
[2016-07-09 06:24] LABS: HEMATOCRIT 25.8 % (36.0-46.0); MCH 27.6 PG (29.0-34.0); MEAN PLAT.VOLUME 9.8 uM^3 (9.5-12.4); PLATELET COUNT 420 K/uL (156-360); RBC DIS.WIDTH-CV 15.4 % (11.8-14.6); RBC DIS.WIDTH-SD 49.2 % (39-53); WHITE BLOOD COUNT 7.8 K/uL (4.1-10.2)
[2016-07-09 06:31] LABS: ANION GAP 8 MEQ/L (2-14); CHLORIDE 103 MEQ/L (99-109); GFR ESTIMATE (CALCULATED) > 59 mL/min/; GLUCOSE 121 mg/dL (70-99); POTASSIUM 3.5 MEQ/L (3.7-5.4); SAMPLE HEMOLYSIS CHECK 0; SAMPLE ICTERIC CHECK 0; SAMPLE LIPEMIA CHECK 0; SODIUM 135 MEQ/L (136-147); UREA NITROGEN (BUN) 10 mg/dL (9-23)
[2016-07-09 06:32] LABS: MAGNESIUM 1.5 mg/dl (1.3-2.7)
[2016-07-09 06:54] LABS: ANISOCYTOSIS 1+; PLAT.SUFFICIENCY INCREASED
[2016-07-09 11:56] LABS: POINT-OF-CARE METER ID UU13113731
[2016-07-09 17:16] LABS: POINT-OF-CARE METER ID UU13113731
[2016-07-10] VITALS (21 sets, daily range): BP systolic 136–171; BP diastolic 63–88
[2016-07-10 00:41] LABS: POINT-OF-CARE METER ID UU14162636
[2016-07-10 05:47] LABS: POINT-OF-CARE METER ID UU13113731
[2016-07-10 06:17] LABS: HEMATOCRIT 28.3 % (36.0-46.0); MCH 27.4 PG (29.0-34.0); MCHC 30.4 G/DL (30.0-36.0); MCV 90.1 FL (83-99); PLATELET COUNT 491 K/uL (156-360); RBC DIS.WIDTH-CV 15.6 % (11.8-14.6); RBC DIS.WIDTH-SD 51.6 % (39-53); RED BLOOD COUNT 3.14 M/uL (3.80-5.20); WHITE BLOOD COUNT 8.1 K/uL (4.1-10.2)
[2016-07-10 06:47] LABS: BASOPHIL COUNT 0.1 K/uL (0-0.1); EOSINOPHIL (%) 2.1 % (0-5); EOSINOPHIL COUNT 0.2 K/uL (0-0.3); IMMATURE GRANULOCYTE (%) 0.9 % (0.0-0.7); IMMATURE GRANULOCYTE COUNT 0.1 K/uL; INSTRUMENT ABS NEUTROPHIL CT 5.6 K/uL; LYMPHOCYTE COUNT 1.3 K/uL (1.0-2.8); MONOCYTE COUNT 0.9 K/uL (0-0.8); NEUTROPHIL (%) 68.9 % (45-76); NEUTROPHIL COUNT 5.6 K/uL (1.8-6.4)
[2016-07-10 06:49] LABS: ANION GAP 12 MEQ/L (2-14); CHLORIDE 100 MEQ/L (99-109); GFR ESTIMATE (CALCULATED) > 59 mL/min/; GLUCOSE 112 mg/dL (70-99); MAGNESIUM 1.3 mg/dl (1.3-2.7); POTASSIUM 3.5 MEQ/L (3.7-5.4); SAMPLE HEMOLYSIS CHECK 0; SAMPLE ICTERIC CHECK 0; SAMPLE LIPEMIA CHECK 0; SODIUM 137 MEQ/L (136-147); UREA NITROGEN (BUN) 6 mg/dL (9-23)
[2016-07-10 13:21] LABS: POINT-OF-CARE METER ID UU13113803
[2016-07-10 18:28] LABS: POINT-OF-CARE METER ID UU14162636
[2016-07-10 23:30] LABS: POINT-OF-CARE METER ID UU14174217; POINT-OF-CARE USER ID AGYTJR
[2016-07-11] VITALS (14 sets, daily range): BP systolic 128–172; BP diastolic 55–88
[2016-07-11 06:01] LABS: POINT-OF-CARE METER ID UU14174217; POINT-OF-CARE USER ID AGYTJR
[2016-07-11 07:22] LABS: MCV 90.4 FL (83-99); MEAN PLAT.VOLUME 10.2 uM^3 (9.5-12.4); PLATELET COUNT 509 K/uL (156-360); RBC DIS.WIDTH-CV 15.8 % (11.8-14.6); RBC DIS.WIDTH-SD 51.4 % (39-53); RED BLOOD COUNT 3.32 M/uL (3.80-5.20)
[2016-07-11 07:40] LABS: ANION GAP 11 MEQ/L (2-14); CHLORIDE 101 MEQ/L (99-109); GFR ESTIMATE (CALCULATED) > 59 mL/min/; GLUCOSE 195 mg/dL (70-99); MAGNESIUM 1.3 mg/dl (1.3-2.7); SAMPLE HEMOLYSIS CHECK 0; SAMPLE ICTERIC CHECK 0; SAMPLE LIPEMIA CHECK 0; SODIUM 137 MEQ/L (136-147); UREA NITROGEN (BUN) 4 mg/dL (9-23)
[2016-07-11 08:22] LABS: EOSINOPHIL (%) 2.5 % (0-5); EOSINOPHIL COUNT 0.2 K/uL (0-0.3); IMMATURE GRANULOCYTE (%) 0.8 % (0.0-0.7); IMMATURE GRANULOCYTE COUNT 0.1 K/uL; INSTRUMENT ABS NEUTROPHIL CT 3.4 K/uL; LYMPHOCYTE COUNT 1.4 K/uL (1.0-2.8); MONOCYTE (%) 17.1 % (3-12); NEUTROPHIL (%) 56.4 % (45-76); NEUTROPHIL COUNT 3.4 K/uL (1.8-6.4)
[2016-07-11 13:12] LABS: POINT-OF-CARE METER ID UU14174217
[2016-07-11 18:08] LABS: POINT-OF-CARE METER ID UU13113731
[2016-07-12] VITALS (20 sets, daily range): BP systolic 109–179; BP diastolic 52–92
[2016-07-12 00:55] LABS: HEMATOCRIT 41.8 % (36.0-46.0); MCH 28.4 PG (29.0-34.0); MCHC 31.8 G/DL (30.0-36.0); MCV 89.3 FL (83-99); MEAN PLAT.VOLUME 9.7 uM^3 (9.5-12.4); NRBC (%) 0.6 /100 WBC (0-0); PLATELET COUNT 445 K/uL (156-360); RBC DIS.WIDTH-CV 15.3 % (11.8-14.6); RBC DIS.WIDTH-SD 49.8 % (39-53); RED BLOOD COUNT 4.68 M/uL (3.80-5.20); WHITE BLOOD COUNT 6.5 K/uL (4.1-10.2)
[2016-07-12 01:07] LABS: CHLORIDE 108 mEq/L (99-109); SODIUM 139 mEq/L (136-147)
[2016-07-12 01:09] LABS: GLUCOSE 199 mg/dL (70-99)
[2016-07-12 01:10] LABS: ANION GAP 10 MEQ/L (2-14)
[2016-07-12 01:13] LABS: GFR ESTIMATE (CALCULATED) > 59 mL/min/
[2016-07-12 01:14] LABS: UREA NITROGEN (BUN) 2 mg/dL (9-23)
[2016-07-12 06:17] LABS: HEMATOCRIT 40.2 % (36.0-46.0); MCH 28.4 PG (29.0-34.0); MCHC 32.1 G/DL (30.0-36.0); MCV 88.4 FL (83-99); MEAN PLAT.VOLUME 10.1 uM^3 (9.5-12.4); NRBC (%) 0.3 /100 WBC (0-0); PLATELET COUNT 447 K/uL (156-360); RBC DIS.WIDTH-CV 15.6 % (11.8-14.6); RBC DIS.WIDTH-SD 50.2 % (39-53); RED BLOOD COUNT 4.55 M/uL (3.80-5.20)
[2016-07-12 06:24] LABS: WHITE BLOOD COUNT 11.4 K/uL (4.1-10.2)
[2016-07-12 06:37] LABS: ANION GAP 9 MEQ/L (2-14); CHLORIDE 106 MEQ/L (99-109); DIRECT BILIRUBIN 0.1 mg/dL (0.0-0.3); GFR ESTIMATE (CALCULATED) > 59 mL/min/; GLUCOSE 226 mg/dL (70-99); MAGNESIUM 1.4 mg/dl (1.3-2.7); POTASSIUM 3.5 MEQ/L (3.7-5.4); PREALBUMIN 8.8 mg/dL (10-40); SAMPLE HEMOLYSIS CHECK 0; SAMPLE ICTERIC CHECK 0; SAMPLE LIPEMIA CHECK 0; SODIUM 138 MEQ/L (136-147); TOTAL BILIRUBIN 0.4 MG/DL (0.0-1.0); UREA NITROGEN (BUN) 3 mg/dL (9-23)
[2016-07-12 06:38] LABS: ALKALINE PHOSPHATASE 43 IU/L (3-129)
[2016-07-12 07:33] LABS: ABS NEUTROPHIL COUNT 10.1; ANISOCYTOSIS 1+; BAND NEUTROPHILS 26.6 % (0-8.0); EOSINOPHIL ABS CT 0; INSTRUMENT ABS NEUTROPHIL CT 9.5 K/uL; LYMPHOCYTES 6.2 % (15.0-45.0); PLAT.SUFFICIENCY ADEQUATE; POIKILOCYTOSIS 1+
[2016-07-12 07:55] LABS: SEG.NEUTROPHILS 61.9 % (46.0-76.0)
[2016-07-12 13:34] LABS: BASE EXCESS -1.7 mEq/L (-3 to +3); CARBOXY HGB 1.3 % (0-5); METHEMOGLOBIN 1.4 % (0-1.5); PO2 57 mm Hg (80-100); pH 7.36 (7.35-7.45)
[2016-07-12 13:35] LABS: BICARBONATE 23.7 mEq/L (22-26); COMMENTS - BLOOD GASES A+C+; DEVICE VENT; FI02 40 %; MODE TC; PCO2 42 mm Hg (35-45); SITE RR; TOTAL RESP RATE 20 resp/min
[2016-07-13] VITALS (21 sets, daily range): BP systolic 135–189; BP diastolic 67–92
[2016-07-13 08:02] LABS: HEMATOCRIT 34.6 % (36.0-46.0); MCH 29.3 PG (29.0-34.0); MCHC 32.4 G/DL (30.0-36.0); MCV 90.6 FL (83-99); MEAN PLAT.VOLUME 10.3 uM^3 (9.5-12.4); NRBC (%) 0.2 /100 WBC (0-0); PLATELET COUNT 430 K/uL (156-360); RBC DIS.WIDTH-CV 16.1 % (11.8-14.6); RBC DIS.WIDTH-SD 52.6 % (39-53); RED BLOOD COUNT 3.82 M/uL (3.80-5.20)
[2016-07-13 08:14] LABS: ANION GAP 8 MEQ/L (2-14); CHLORIDE 109 MEQ/L (99-109); GFR ESTIMATE (CALCULATED) > 59 mL/min/; GLUCOSE 205 mg/dL (70-99); POTASSIUM 3.3 MEQ/L (3.7-5.4); SAMPLE HEMOLYSIS CHECK 0; SAMPLE ICTERIC CHECK 0; SAMPLE LIPEMIA CHECK 0; SODIUM 143 MEQ/L (136-147); UREA NITROGEN (BUN) 4 mg/dL (9-23)
[2016-07-13 08:15] LABS: MAGNESIUM 1.8 mg/dl (1.3-2.7)
[2016-07-13 08:22] LABS: ABS NEUTROPHIL COUNT 13.9; ANISOCYTOSIS 1+; BAND NEUTROPHILS 18.6 % (0-8.0); BURR CELLS 1+; EOSINOPHIL ABS CT 0; INSTRUMENT ABS NEUTROPHIL CT 12.2 K/uL; LYMPHOCYTES 2.6 % (15.0-45.0); METAMYELOCYTES 1.8 %; MYELOCYTES 1.8 %; PLAT.SUFFICIENCY ADEQUATE; POIKILOCYTOSIS 1+; POLYCHROMASIA 1+; SEG.NEUTROPHILS 68.1 % (46.0-76.0); TARGET CELLS 1+
[2016-07-13 12:48] LABS: POINT-OF-CARE METER ID UU14174217
[2016-07-13 18:28] LABS: POINT-OF-CARE METER ID UU14162636
[2016-07-14] VITALS (16 sets, daily range): BP systolic 110–163; BP diastolic 63–105
[2016-07-14 01:10] LABS: POINT-OF-CARE METER ID UU14162636; POINT-OF-CARE USER ID AGYTJR
[2016-07-14 06:34] LABS: POINT-OF-CARE METER ID UU14174217; POINT-OF-CARE USER ID AGYTJR
[2016-07-14 06:35] LABS: HEMATOCRIT 35.1 % (36.0-46.0); MCH 28.6 PG (29.0-34.0); MCHC 31.9 G/DL (30.0-36.0); MCV 89.8 FL (83-99); MEAN PLAT.VOLUME 10.7 uM^3 (9.5-12.4); NRBC (%) 0.2 /100 WBC (0-0); PLATELET COUNT 311 K/uL (156-360); RBC DIS.WIDTH-CV 16.2 % (11.8-14.6); RBC DIS.WIDTH-SD 52.5 % (39-53); RED BLOOD COUNT 3.91 M/uL (3.80-5.20); WHITE BLOOD COUNT 16.2 K/uL (4.1-10.2)
[2016-07-14 06:54] LABS: ANION GAP 8 MEQ/L (2-14); CHLORIDE 113 MEQ/L (99-109); GFR ESTIMATE (CALCULATED) > 59 mL/min/; GLUCOSE 251 mg/dL (70-99); MAGNESIUM 1.8 mg/dl (1.3-2.7); SAMPLE HEMOLYSIS CHECK 0; SAMPLE ICTERIC CHECK 0; SAMPLE LIPEMIA CHECK 0; SODIUM 147 MEQ/L (136-147); UREA NITROGEN (BUN) 6 mg/dL (9-23)
[2016-07-14 06:57] LABS: POTASSIUM 4.1 MEQ/L (3.7-5.4)
[2016-07-14 07:26] LABS: EOSINOPHIL (%) 1.1 % (0-5); EOSINOPHIL COUNT 0.2 K/uL (0-0.3); IMMATURE GRANULOCYTE (%) 2.4 % (0.0-0.7); IMMATURE GRANULOCYTE COUNT 0.4 K/uL; LYMPHOCYTE COUNT 1.9 K/uL (1.0-2.8); MONOCYTE (%) 6.9 % (3-12); MONOCYTE COUNT 1.2 K/uL (0-0.8); NEUTROPHIL (%) 77.8 % (45-76)
[2016-07-14 08:02] LABS: PLAT.SUFFICIENCY ADEQUATE
[2016-07-14 13:19] LABS: POINT-OF-CARE METER ID UU13113731
[2016-07-14 18:22] LABS: POINT-OF-CARE METER ID UU13113781
[2016-07-14 19:56] LABS: BASE EXCESS 4.7 mEq/L (-3 to +3); BICARBONATE 28.2 mEq/L (22-26); CARBOXY HGB 1.2 % (0-5); COMMENTS - BLOOD GASES A+C+; DEVICE NC; METHEMOGLOBIN 1.7 % (0-1.5); O2 FLOW 4 L/MIN; PCO2 37 mm Hg (35-45); PO2 68 mm Hg (80-100); SITE RR; TOTAL RESP RATE 21 resp/min; pH 7.49 (7.35-7.45)
[2016-07-14 20:35] LABS: BASOPHIL COUNT 0.1 K/uL (0-0.1); EOSINOPHIL (%) 0 % (0-5); HEMATOCRIT 36.4 % (36.0-46.0); IMMATURE GRANULOCYTE (%) 4.2 % (0.0-0.7); IMMATURE GRANULOCYTE COUNT 0.7 K/uL; INSTRUMENT ABS NEUTROPHIL CT 13.1 K/uL; LYMPHOCYTE COUNT 1.3 K/uL (1.0-2.8); MCH 27.8 PG (29.0-34.0); MCHC 30.5 G/DL (30.0-36.0); MCV 91.2 FL (83-99); MEAN PLAT.VOLUME 9.9 uM^3 (9.5-12.4); MONOCYTE (%) 6.4 % (3-12); NEUTROPHIL (%) 81.2 % (45-76); NEUTROPHIL COUNT 13.1 K/uL (1.8-6.4); NRBC (%) 0.6 /100 WBC (0-0); RBC DIS.WIDTH-CV 16.3 % (11.8-14.6); RBC DIS.WIDTH-SD 54.6 % (39-53); RED BLOOD COUNT 3.99 M/uL (3.80-5.20); WHITE BLOOD COUNT 16.2 K/uL (4.1-10.2)
[2016-07-14 20:39] LABS: PLATELET COUNT 448 K/uL (156-360)
[2016-07-14 20:45] LABS: CHLORIDE 113 mEq/L (99-109); POTASSIUM 4.5 mEq/L (3.7-5.4); SODIUM 150 mEq/L (136-147)
[2016-07-14 20:46] LABS: GLUCOSE 316 mg/dL (70-99)
[2016-07-14 20:48] LABS: ANION GAP 12 MEQ/L (2-14)
[2016-07-14 20:50] LABS: GFR ESTIMATE (CALCULATED) > 59 mL/min/
[2016-07-14 20:51] LABS: UREA NITROGEN (BUN) 12 mg/dL (9-23)
[2016-07-14 22:19] LABS: METH RESISTANT S AUREUS PCR NEGATIVE (NEGATIVE)
[2016-07-14 22:34] LABS: PROBE CHECK PASS; SPECIMEN PROCESSING CONTROL PASS
[2016-07-14 22:45] LABS: ADD MIUA? YES; BILIRUBIN NEGATIVE; BLOOD SMALL; COLOR YELLOW ((YELLOW)); GLUCOSE (STRIP) >=500; KETONES 5; LEUKOCYTES TRACE; NITRITE NEGATIVE; PROTEIN (STRIP) 30; SPECIFIC GRAVITY 1.029 (1.000-1.030); UROBILINOGEN 0.2 MG/DL (0.2-1.0)
[2016-07-14 22:55] LABS: BACTERIA RARE /HPF; EPITHELIAL CELLS RARE /HPF; MUCUS 1+ /LPF; RED BLOOD CELLS 15-20 /HPF (0-5); UCUL ADDED? NO; WHITE BLOOD CELLS 0-5 /HPF (0-5)
[2016-07-15] VITALS (18 sets, daily range): BP systolic 99–151; BP diastolic 57–137
[2016-07-15 00:12] LABS: POINT-OF-CARE METER ID UU14174217
[2016-07-15 06:06] LABS: POINT-OF-CARE METER ID UU13113803
[2016-07-15 06:37] LABS: ANION GAP 9 MEQ/L (2-14); CHLORIDE 116 MEQ/L (99-109); GFR ESTIMATE (CALCULATED) > 59 mL/min/; GLUCOSE 307 mg/dL (70-99); MAGNESIUM 1.8 mg/dl (1.3-2.7); POTASSIUM 4.5 MEQ/L (3.7-5.4); SAMPLE HEMOLYSIS CHECK 0; SAMPLE ICTERIC CHECK 0; SAMPLE LIPEMIA CHECK 0; SODIUM 149 MEQ/L (136-147); UREA NITROGEN (BUN) 15 mg/dL (9-23)
[2016-07-15 06:39] LABS: HEMATOCRIT 34.1 % (36.0-46.0); MCHC 32.6 G/DL (30.0-36.0); NRBC (%) 0.5 /100 WBC (0-0); RBC DIS.WIDTH-CV 16.3 % (11.8-14.6); RED BLOOD COUNT 3.83 M/uL (3.80-5.20); WHITE BLOOD COUNT 15.5 K/uL (4.1-10.2)
[2016-07-15 07:22] LABS: EOSINOPHIL (%) 0.1 % (0-5); IMMATURE GRANULOCYTE COUNT 0.5 K/uL; INSTRUMENT ABS NEUTROPHIL CT 11.7 K/uL; LYMPHOCYTE COUNT 2.4 K/uL (1.0-2.8); MEAN PLAT.VOLUME 10.4 uM^3 (9.5-12.4); MONOCYTE (%) 5.9 % (3-12); MONOCYTE COUNT 0.9 K/uL (0-0.8); NEUTROPHIL (%) 75.2 % (45-76); NEUTROPHIL COUNT 11.7 K/uL (1.8-6.4); PLATELET COUNT 267 K/uL (156-360)
[2016-07-15 12:19] LABS: POINT-OF-CARE METER ID UU13113803; POINT-OF-CARE USER ID 612031313
[2016-07-15 19:02] LABS: POINT-OF-CARE METER ID UU14174217; POINT-OF-CARE USER ID 612031313
[2016-07-15 23:42] LABS: POINT-OF-CARE METER ID UU14174217
[2016-07-16] VITALS (27 sets, daily range): BP systolic 79–153; BP diastolic 46–84
[2016-07-16 06:12] LABS: BASOPHIL COUNT 0.1 K/uL (0-0.1); EOSINOPHIL (%) 0 % (0-5); HEMATOCRIT 36.2 % (36.0-46.0); IMMATURE GRANULOCYTE COUNT 0.4 K/uL; INSTRUMENT ABS NEUTROPHIL CT 16.8 K/uL; LYMPHOCYTE COUNT 2.5 K/uL (1.0-2.8); MCHC 31.2 G/DL (30.0-36.0); MCV 92.8 FL (83-99); MEAN PLAT.VOLUME 10.9 uM^3 (9.5-12.4); MONOCYTE (%) 5.4 % (3-12); MONOCYTE COUNT 1.1 K/uL (0-0.8); NEUTROPHIL (%) 80.5 % (45-76); NEUTROPHIL COUNT 16.8 K/uL (1.8-6.4); PLATELET COUNT 324 K/uL (156-360); RBC DIS.WIDTH-CV 16.7 % (11.8-14.6); RBC DIS.WIDTH-SD 55.8 % (39-53)
[2016-07-16 06:14] LABS: WHITE BLOOD COUNT 20.9 K/uL (4.1-10.2)
[2016-07-16 07:00] LABS: ANION GAP 8 MEQ/L (2-14); CHLORIDE 118 MEQ/L (99-109); DIRECT BILIRUBIN 0.2 mg/dL (0.0-0.3); GFR ESTIMATE (CALCULATED) > 59 mL/min/; GLUCOSE 337 mg/dL (70-99); MAGNESIUM 1.9 mg/dl (1.3-2.7); POTASSIUM 4.4 MEQ/L (3.7-5.4); SAMPLE HEMOLYSIS CHECK 0; SAMPLE ICTERIC CHECK 0; SAMPLE LIPEMIA CHECK 0; SODIUM 156 MEQ/L (136-147); TRIGLYCERIDES 98 MG/DL (Normal: <150); UREA NITROGEN (BUN) 19 mg/dL (9-23)
[2016-07-16 07:06] LABS: ALKALINE PHOSPHATASE 89 IU/L (3-129); PREALBUMIN 3.9 mg/dL (10-40); TOTAL BILIRUBIN 0.5 MG/DL (0.0-1.0)
[2016-07-16 11:49] LABS: ADD MIUA? YES; BILIRUBIN NEGATIVE; BLOOD NEGATIVE; COLOR AMBER ((YELLOW)); GLUCOSE (STRIP) >=500; KETONES NEGATIVE; LEUKOCYTES TRACE; NITRITE NEGATIVE; PROTEIN (STRIP) 30; UROBILINOGEN 0.2 MG/DL (0.2-1.0)
[2016-07-16 12:20] LABS: POINT-OF-CARE METER ID UU13113731
[2016-07-16 12:23] LABS: BACTERIA 1+ /HPF; EPITHELIAL CELLS RARE /HPF; GRANULAR CASTS 0-5 /LPF; MUCUS 2+ /LPF; UCUL ADDED? NO; WHITE BLOOD CELLS 0-5 /HPF (0-5)
[2016-07-16 19:59] LABS: HEMATOCRIT 33.2 % (36.0-46.0); MCHC 30.4 G/DL (30.0-36.0); MEAN PLAT.VOLUME 11.3 uM^3 (9.5-12.4); NRBC (%) 0.2 /100 WBC (0-0); PLATELET COUNT 287 K/uL (156-360); RBC DIS.WIDTH-CV 16.6 % (11.8-14.6); RED BLOOD COUNT 3.61 M/uL (3.80-5.20); WHITE BLOOD COUNT 14.7 K/uL (4.1-10.2)
[2016-07-16 20:07] LABS: BASE EXCESS 3.9 mEq/L (-3 to +3); BICARBONATE 28.5 mEq/L (22-26); CARBOXY HGB 0.5 % (0-5); METHEMOGLOBIN 1.2 % (0-1.5); pH 7.44 (7.35-7.45)
[2016-07-16 20:08] LABS: COMMENTS - BLOOD GASES C; DEVICE VENT; FI02 50 %; MECHANICAL RATE 14 resp/min; MODE AC; PCO2 42 mm Hg (35-45); PEEP 5 CM/H20; PO2 136 mm Hg (80-100); SITE RR ALINE; TOTAL RESP RATE 14 resp/min
[2016-07-16 20:14] LABS: CHLORIDE 121 mEq/L (99-109); POTASSIUM 3.6 mEq/L (3.7-5.4); SODIUM 152 mEq/L (136-147)
[2016-07-16 20:15] LABS: MAGNESIUM 1.5 mg/dL (1.3-2.7)
[2016-07-16 20:16] LABS: GLUCOSE 301 mg/dL (70-99)
[2016-07-16 20:18] LABS: ANION GAP 5 MEQ/L (2-14)
[2016-07-16 20:20] LABS: GFR ESTIMATE (CALCULATED) > 59 mL/min/
[2016-07-16 20:21] LABS: UREA NITROGEN (BUN) 20 mg/dL (9-23)
[2016-07-16 22:07] LABS: POINT-OF-CARE METER ID UU13113731
[2016-07-17] VITALS: BP 79/46
[2016-07-17 02:00] VITALS: BP 78/45
[2016-07-17 04:00] VITALS: BP 94/62
[2016-07-17 07:14] LABS: EOSINOPHIL (%) 0.1 % (0-5); HEMATOCRIT 31.8 % (36.0-46.0); IMMATURE GRANULOCYTE (%) 0.7 % (0.0-0.7); IMMATURE GRANULOCYTE COUNT 0.1 K/uL; INSTRUMENT ABS NEUTROPHIL CT 10.2 K/uL; LYMPHOCYTE COUNT 1.5 K/uL (1.0-2.8); MCH 27.8 PG (29.0-34.0); MCHC 29.9 G/DL (30.0-36.0); MEAN PLAT.VOLUME 11.7 uM^3 (9.5-12.4); MONOCYTE (%) 2.7 % (3-12); MONOCYTE COUNT 0.3 K/uL (0-0.8); NEUTROPHIL (%) 84.2 % (45-76); NEUTROPHIL COUNT 10.2 K/uL (1.8-6.4); NRBC (%) 0.3 /100 WBC (0-0); PLATELET COUNT 283 K/uL (156-360); RBC DIS.WIDTH-CV 16.6 % (11.8-14.6); RBC DIS.WIDTH-SD 56.6 % (39-53); RED BLOOD COUNT 3.42 M/uL (3.80-5.20); WHITE BLOOD COUNT 12.1 K/uL (4.1-10.2)
[2016-07-17 07:57] LABS: ANION GAP 7 MEQ/L (2-14); CHLORIDE 118 MEQ/L (99-109); GFR ESTIMATE (CALCULATED) > 59 mL/min/; GLUCOSE 331 mg/dL (70-99); MAGNESIUM 1.9 mg/dl (1.3-2.7); POTASSIUM 3.8 MEQ/L (3.7-5.4); SAMPLE HEMOLYSIS CHECK 0; SAMPLE ICTERIC CHECK 0; SAMPLE LIPEMIA CHECK 0; SODIUM 153 MEQ/L (136-147); UREA NITROGEN (BUN) 23 mg/dL (9-23)
[2016-07-17 11:19] LABS: URINE UREA NITROGEN 9348 MG/24 HR
[2016-07-17 13:08] LABS: BASE EXCESS 4.2 mEq/L (-3 to +3); BICARBONATE 28.4 mEq/L (22-26); CARBOXY HGB 1.5 % (0-5); PCO2 40 mm Hg (35-45); pH 7.46 (7.35-7.45)
[2016-07-17 13:09] LABS: COMMENTS - BLOOD GASES A+C+; CONTINUOUS POS AIRWAY PRESSURE 5 cm H2O; DEVICE VENT; FI02 40 %; MODE SPONT; PO2 77 mm Hg (80-100); PRES. SUPPORT 10 CM/H2O; SITE A-LINE; TOTAL RESP RATE 18 resp/min
[2016-07-17 15:33] LABS: ALKALINE PHOSPHATASE 59 IU/L (3-129); DIRECT BILIRUBIN 0.1 mg/dL (0.0-0.3); TOTAL BILIRUBIN 0.3 MG/DL (0.0-1.0)
[2016-07-17 16:30] VITALS: BP 100/52
[2016-07-17 17:54] LABS: TROP-I INTERPRETATION POSITIVE; TROPONIN-I 0.98 ng/mL (0.0-0.30)
[2016-07-17 18:34] LABS: POINT-OF-CARE METER ID UU13113731
[2016-07-17 20:00] VITALS: BP 102/55
[2016-07-17 20:22] LABS: CHLORIDE 119 mEq/L (99-109); POTASSIUM 3.2 mEq/L (3.7-5.4); SODIUM 150 mEq/L (136-147)
[2016-07-17 20:24] LABS: GLUCOSE 227 mg/dL (70-99)
[2016-07-17 20:25] LABS: ANION GAP 7 MEQ/L (2-14)
[2016-07-17 20:28] LABS: GFR ESTIMATE (CALCULATED) > 59 mL/min/
[2016-07-17 20:29] LABS: UREA NITROGEN (BUN) 20 mg/dL (9-23)
[2016-07-17 21:14] LABS: BASE EXCESS 2.2 mEq/L (-3 to +3); BICARBONATE 26.5 mEq/L (22-26); COMMENTS - BLOOD GASES C+; DEVICE VENT; FI02 30 %; MECHANICAL RATE 16 resp/min; MODE A/C; PCO2 39 mm Hg (35-45); PEEP 5 CM/H20; PO2 89 mm Hg (80-100); SITE A LINE; TIDAL VOLUME 400 ML; pH 7.44 (7.35-7.45)
[2016-07-17 22:59] LABS: POINT-OF-CARE METER ID UU13113731
[2016-07-18] VITALS (12 sets, daily range): BP systolic 91–128; BP diastolic 46–59
[2016-07-18 01:58] LABS: TROP-I INTERPRETATION POSITIVE; TROPONIN-I 0.79 ng/mL (0.0-0.30)
[2016-07-18 03:19] LABS: POINT-OF-CARE METER ID UU13113731
[2016-07-18 06:06] LABS: POINT-OF-CARE METER ID UU14174217
[2016-07-18 07:00] LABS: TROP-I INTERPRETATION POSITIVE; TROPONIN-I 0.74 ng/mL (0.0-0.30)
[2016-07-18 07:18] LABS: BASOPHIL COUNT 0.1 K/uL (0-0.1); EOSINOPHIL COUNT 0.3 K/uL (0-0.3); HEMATOCRIT 30.8 % (36.0-46.0); IMMATURE GRANULOCYTE (%) 0.8 % (0.0-0.7); IMMATURE GRANULOCYTE COUNT 0.1 K/uL; INSTRUMENT ABS NEUTROPHIL CT 12.7 K/uL; MCH 27.5 PG (29.0-34.0); MCHC 29.9 G/DL (30.0-36.0); MCV 92.2 FL (83-99); MEAN PLAT.VOLUME 12.3 uM^3 (9.5-12.4); MONOCYTE (%) 3.6 % (3-12); MONOCYTE COUNT 0.6 K/uL (0-0.8); NEUTROPHIL (%) 80.8 % (45-76); NEUTROPHIL COUNT 12.7 K/uL (1.8-6.4); NRBC (%) 0.4 /100 WBC (0-0); PLATELET COUNT 239 K/uL (156-360); RBC DIS.WIDTH-CV 16.8 % (11.8-14.6); RBC DIS.WIDTH-SD 56.2 % (39-53); RED BLOOD COUNT 3.34 M/uL (3.80-5.20)
[2016-07-18 07:23] LABS: WHITE BLOOD COUNT 15.8 K/uL (4.1-10.2)
[2016-07-18 10:07] LABS: ALKALINE PHOSPHATASE 59 IU/L (3-129); ANION GAP 8 MEQ/L (2-14); CHLORIDE 116 MEQ/L (99-109); DIRECT BILIRUBIN 0.1 mg/dL (0.0-0.3); GFR ESTIMATE (CALCULATED) > 59 mL/min/; GLUCOSE 139 mg/dL (70-99); SAMPLE HEMOLYSIS CHECK 0; SAMPLE ICTERIC CHECK 0; SAMPLE LIPEMIA CHECK 0; SODIUM 149 MEQ/L (136-147); TOTAL BILIRUBIN 0.3 MG/DL (0.0-1.0); UREA NITROGEN (BUN) 21 mg/dL (9-23)
[2016-07-18 10:07] LABS: POINT-OF-CARE METER ID UU14174217; POINT-OF-CARE USER ID 612031313
[2016-07-18 13:12] LABS: TROP-I INTERPRETATION INDETERMINATE; TROPONIN-I 0.47 ng/mL (0.0-0.30)
[2016-07-18 14:37] LABS: POINT-OF-CARE METER ID UU14174217; POINT-OF-CARE USER ID 612031313
[2016-07-18 17:32] LABS: POINT-OF-CARE METER ID UU14174217; POINT-OF-CARE USER ID 612031313
[2016-07-18 18:52] LABS: CHLORIDE 116 mEq/L (99-109); POTASSIUM 3.7 mEq/L (3.7-5.4); SODIUM 148 mEq/L (136-147)
[2016-07-18 18:54] LABS: GLUCOSE 177 mg/dL (70-99)
[2016-07-18 18:56] LABS: ANION GAP 7 MEQ/L (2-14)
[2016-07-18 18:58] LABS: GFR ESTIMATE (CALCULATED) > 59 mL/min/
[2016-07-18 18:59] LABS: UREA NITROGEN (BUN) 17 mg/dL (9-23)
[2016-07-18 23:49] LABS: POINT-OF-CARE METER ID UU14162636
[2016-07-19] VITALS (10 sets, daily range): BP systolic 107–154; BP diastolic 38–71
[2016-07-19 03:11] LABS: POINT-OF-CARE METER ID UU13113731
[2016-07-19 06:04] LABS: POINT-OF-CARE METER ID UU13113731
[2016-07-19 06:27] LABS: EOSINOPHIL (%) 2.2 % (0-5); EOSINOPHIL COUNT 0.4 K/uL (0-0.3); HEMATOCRIT 28.8 % (36.0-46.0); IMMATURE GRANULOCYTE (%) 0.9 % (0.0-0.7); IMMATURE GRANULOCYTE COUNT 0.2 K/uL; INSTRUMENT ABS NEUTROPHIL CT 13.4 K/uL; LYMPHOCYTE COUNT 1.8 K/uL (1.0-2.8); MCH 28.4 PG (29.0-34.0); MCHC 30.9 G/DL (30.0-36.0); MEAN PLAT.VOLUME 12.6 uM^3 (9.5-12.4); MONOCYTE (%) 3.9 % (3-12); MONOCYTE COUNT 0.6 K/uL (0-0.8); NEUTROPHIL (%) 81.7 % (45-76); NEUTROPHIL COUNT 13.4 K/uL (1.8-6.4); NRBC (%) 0.2 /100 WBC (0-0); PLATELET COUNT 274 K/uL (156-360); RBC DIS.WIDTH-CV 17.1 % (11.8-14.6); RBC DIS.WIDTH-SD 57.2 % (39-53); RED BLOOD COUNT 3.13 M/uL (3.80-5.20); WHITE BLOOD COUNT 16.5 K/uL (4.1-10.2)
[2016-07-19 07:10] LABS: ANION GAP 6 MEQ/L (2-14); CHLORIDE 113 MEQ/L (99-109); GFR ESTIMATE (CALCULATED) > 59 mL/min/; GLUCOSE 179 mg/dL (70-99); MAGNESIUM 1.8 mg/dl (1.3-2.7); SAMPLE HEMOLYSIS CHECK 0; SAMPLE ICTERIC CHECK 0; SAMPLE LIPEMIA CHECK 0; SODIUM 148 MEQ/L (136-147); UREA NITROGEN (BUN) 16 mg/dL (9-23)
[2016-07-19 11:17] LABS: POINT-OF-CARE METER ID UU13113731
[2016-07-19 16:04] LABS: POINT-OF-CARE METER ID UU14162636
[2016-07-19 21:43] LABS: POINT-OF-CARE METER ID UU13113731
[2016-07-20] VITALS (9 sets, daily range): BP systolic 108–145; BP diastolic 41–68
[2016-07-20 05:45] LABS: BASOPHIL COUNT 0.1 K/uL (0-0.1); EOSINOPHIL (%) 2.3 % (0-5); EOSINOPHIL COUNT 0.4 K/uL (0-0.3); HEMATOCRIT 30.7 % (36.0-46.0); IMMATURE GRANULOCYTE (%) 1.1 % (0.0-0.7); IMMATURE GRANULOCYTE COUNT 0.2 K/uL; INSTRUMENT ABS NEUTROPHIL CT 13.3 K/uL; LYMPHOCYTE COUNT 1.4 K/uL (1.0-2.8); MCH 27.5 PG (29.0-34.0); MCHC 29.6 G/DL (30.0-36.0); MCV 92.7 FL (83-99); MEAN PLAT.VOLUME 12.8 uM^3 (9.5-12.4); MONOCYTE (%) 4.3 % (3-12); MONOCYTE COUNT 0.7 K/uL (0-0.8); NEUTROPHIL COUNT 13.3 K/uL (1.8-6.4); NRBC (%) 0.2 /100 WBC (0-0); RBC DIS.WIDTH-CV 17.1 % (11.8-14.6); RED BLOOD COUNT 3.31 M/uL (3.80-5.20)
[2016-07-20 05:51] LABS: PLATELET COUNT 357 K/uL (156-360)
[2016-07-20 05:57] LABS: CHLORIDE 108 mEq/L (99-109); MAGNESIUM 1.6 mg/dL (1.3-2.7); POTASSIUM 4.2 mEq/L (3.7-5.4); SODIUM 145 mEq/L (136-147)
[2016-07-20 05:59] LABS: GLUCOSE 155 mg/dL (70-99)
[2016-07-20 06:00] LABS: ANION GAP 8 MEQ/L (2-14)
[2016-07-20 06:02] LABS: GFR ESTIMATE (CALCULATED) > 59 mL/min/
[2016-07-20 06:03] LABS: UREA NITROGEN (BUN) 14 mg/dL (9-23)
[2016-07-20 08:48] LABS: POINT-OF-CARE METER ID UU14174217
[2016-07-20 17:51] LABS: POINT-OF-CARE METER ID UU14174217
[2016-07-20 23:39] LABS: POINT-OF-CARE METER ID UU14174217
[2016-07-21] VITALS: BP 103/42
[2016-07-21 04:00] VITALS: BP 99/39
[2016-07-21 08:00] VITALS: BP 155/58
[2016-07-21 08:41] LABS: EOSINOPHIL (%) 2.3 % (0-5); EOSINOPHIL COUNT 0.3 K/uL (0-0.3); HEMATOCRIT 28.5 % (36.0-46.0); IMMATURE GRANULOCYTE (%) 0.7 % (0.0-0.7); IMMATURE GRANULOCYTE COUNT 0.1 K/uL; INSTRUMENT ABS NEUTROPHIL CT 10.4 K/uL; LYMPHOCYTE COUNT 1.2 K/uL (1.0-2.8); MCH 27.5 PG (29.0-34.0); MCHC 29.1 G/DL (30.0-36.0); MCV 94.4 FL (83-99); MEAN PLAT.VOLUME 12.5 uM^3 (9.5-12.4); MONOCYTE (%) 6.7 % (3-12); MONOCYTE COUNT 0.9 K/uL (0-0.8); NEUTROPHIL (%) 80.7 % (45-76); NEUTROPHIL COUNT 10.4 K/uL (1.8-6.4); PLATELET COUNT 395 K/uL (156-360); RBC DIS.WIDTH-SD 57.2 % (39-53); RED BLOOD COUNT 3.02 M/uL (3.80-5.20); WHITE BLOOD COUNT 12.8 K/uL (4.1-10.2)
[2016-07-21 09:20] LABS: ANION GAP 7 MEQ/L (2-14); CHLORIDE 107 MEQ/L (99-109); GFR ESTIMATE (CALCULATED) > 59 mL/min/; GLUCOSE 149 mg/dL (70-99); POTASSIUM 4.4 MEQ/L (3.7-5.4); SAMPLE HEMOLYSIS CHECK 0; SAMPLE ICTERIC CHECK 0; SAMPLE LIPEMIA CHECK 0; SODIUM 144 MEQ/L (136-147); UREA NITROGEN (BUN) 13 mg/dL (9-23)
[2016-07-21 12:00] VITALS: BP 121/31
[2016-07-21 16:00] VITALS: BP 114/68
[2016-07-21 17:43] LABS: POINT-OF-CARE METER ID UU14174217
[2016-07-21 20:00] VITALS: BP 130/50
[2016-07-22] VITALS: BP 110/53
[2016-07-22 04:00] VITALS: BP 143/62
[2016-07-22 05:25] LABS: EOSINOPHIL (%) 2.1 % (0-5); EOSINOPHIL COUNT 0.3 K/uL (0-0.3); IMMATURE GRANULOCYTE (%) 0.6 % (0.0-0.7); IMMATURE GRANULOCYTE COUNT 0.1 K/uL; INSTRUMENT ABS NEUTROPHIL CT 11.8 K/uL; LYMPHOCYTE COUNT 1.3 K/uL (1.0-2.8); MCH 27.9 PG (29.0-34.0); MCHC 29.3 G/DL (30.0-36.0); MCV 95.1 FL (83-99); MEAN PLAT.VOLUME 12.5 uM^3 (9.5-12.4); MONOCYTE (%) 7.3 % (3-12); MONOCYTE COUNT 1.1 K/uL (0-0.8); NEUTROPHIL COUNT 11.8 K/uL (1.8-6.4); PLATELET COUNT 454 K/uL (156-360); RBC DIS.WIDTH-CV 17.2 % (11.8-14.6); RBC DIS.WIDTH-SD 58.1 % (39-53); RED BLOOD COUNT 3.05 M/uL (3.80-5.20); WHITE BLOOD COUNT 14.5 K/uL (4.1-10.2)
[2016-07-22 06:25] LABS: ANION GAP 7 MEQ/L (2-14); CHLORIDE 107 MEQ/L (99-109); GFR ESTIMATE (CALCULATED) > 59 mL/min/; GLUCOSE 181 mg/dL (70-99); MAGNESIUM 1.8 mg/dl (1.3-2.7); POTASSIUM 4.5 MEQ/L (3.7-5.4); SAMPLE HEMOLYSIS CHECK 0; SAMPLE ICTERIC CHECK 0; SAMPLE LIPEMIA CHECK 0; SODIUM 145 MEQ/L (136-147); UREA NITROGEN (BUN) 11 mg/dL (9-23)
[2016-07-22 08:00] VITALS: BP 152/63
[2016-07-22 08:28] LABS: POINT-OF-CARE METER ID UU14174217
[2016-07-22 11:56] LABS: POINT-OF-CARE METER ID UU14174217
[2016-07-22 12:00] VITALS: BP 123/56
[2016-07-22 16:00] VITALS: BP 133/60
[2016-07-22 17:21] LABS: POINT-OF-CARE METER ID UU14174217
[2016-07-22 22:00] VITALS: BP 115/48
[2016-07-22 23:05] LABS: POINT-OF-CARE METER ID UU14174217
[2016-07-23] VITALS (8 sets, daily range): BP systolic 117–141; BP diastolic 46–70
[2016-07-23 05:54] LABS: EOSINOPHIL (%) 2.4 % (0-5); EOSINOPHIL COUNT 0.3 K/uL (0-0.3); IMMATURE GRANULOCYTE (%) 0.6 % (0.0-0.7); IMMATURE GRANULOCYTE COUNT 0.1 K/uL; INSTRUMENT ABS NEUTROPHIL CT 8.7 K/uL; LYMPHOCYTE COUNT 1.2 K/uL (1.0-2.8); MCH 28.4 PG (29.0-34.0); MCHC 29.3 G/DL (30.0-36.0); MCV 96.9 FL (83-99); MEAN PLAT.VOLUME 12.5 uM^3 (9.5-12.4); MONOCYTE (%) 9.1 % (3-12); NEUTROPHIL (%) 77.4 % (45-76); NEUTROPHIL COUNT 8.7 K/uL (1.8-6.4); PLATELET COUNT 450 K/uL (156-360); RBC DIS.WIDTH-CV 17.6 % (11.8-14.6); RBC DIS.WIDTH-SD 60.1 % (39-53); RED BLOOD COUNT 2.89 M/uL (3.80-5.20); WHITE BLOOD COUNT 11.3 K/uL (4.1-10.2)
[2016-07-23 07:28] LABS: ANION GAP 5 MEQ/L (2-14); CHLORIDE 106 MEQ/L (99-109); DIRECT BILIRUBIN 0.1 mg/dL (0.0-0.3); GFR ESTIMATE (CALCULATED) > 59 mL/min/; GLUCOSE 201 mg/dL (70-99); MAGNESIUM 1.8 mg/dl (1.3-2.7); POTASSIUM 4.8 MEQ/L (3.7-5.4); SAMPLE HEMOLYSIS CHECK 0; SAMPLE ICTERIC CHECK 0; SAMPLE LIPEMIA CHECK 0; SODIUM 145 MEQ/L (136-147); TRIGLYCERIDES 172 MG/DL (Normal: <150); UREA NITROGEN (BUN) 11 mg/dL (9-23)
[2016-07-23 07:33] LABS: ALKALINE PHOSPHATASE 151 IU/L (3-129); TOTAL BILIRUBIN 0.4 MG/DL (0.0-1.0)
[2016-07-23 22:04] LABS: POINT-OF-CARE METER ID UU13113803
[2016-07-24] VITALS: BP 118/46
[2016-07-24 04:00] VITALS: BP 127/65
[2016-07-24 05:30] LABS: EOSINOPHIL (%) 2.8 % (0-5); EOSINOPHIL COUNT 0.3 K/uL (0-0.3); HEMATOCRIT 26.9 % (36.0-46.0); IMMATURE GRANULOCYTE (%) 0.7 % (0.0-0.7); IMMATURE GRANULOCYTE COUNT 0.1 K/uL; INSTRUMENT ABS NEUTROPHIL CT 7.6 K/uL; LYMPHOCYTE COUNT 1.2 K/uL (1.0-2.8); MCH 27.5 PG (29.0-34.0); MCHC 28.6 G/DL (30.0-36.0); MCV 96.1 FL (83-99); MEAN PLAT.VOLUME 11.9 uM^3 (9.5-12.4); MONOCYTE (%) 9.7 % (3-12); NEUTROPHIL (%) 74.6 % (45-76); NEUTROPHIL COUNT 7.6 K/uL (1.8-6.4); PLATELET COUNT 526 K/uL (156-360); RBC DIS.WIDTH-CV 17.5 % (11.8-14.6); RBC DIS.WIDTH-SD 58.7 % (39-53); WHITE BLOOD COUNT 10.1 K/uL (4.1-10.2)
[2016-07-24 08:00] VITALS: BP 127/65
[2016-07-24 08:00] LABS: ANION GAP 5 MEQ/L (2-14); CHLORIDE 102 MEQ/L (99-109); GFR ESTIMATE (CALCULATED) > 59 mL/min/; GLUCOSE 227 mg/dL (70-99); MAGNESIUM 1.9 mg/dl (1.3-2.7); POTASSIUM 4.4 MEQ/L (3.7-5.4); PREALBUMIN 5.1 mg/dL (10-40); SAMPLE HEMOLYSIS CHECK 0; SAMPLE ICTERIC CHECK 0; SAMPLE LIPEMIA CHECK 0; SODIUM 143 MEQ/L (136-147); UREA NITROGEN (BUN) 12 mg/dL (9-23)
[2016-07-24 11:35] LABS: POINT-OF-CARE METER ID UU13113803
[2016-07-24 12:00] VITALS: BP 136/55
[2016-07-24 16:00] VITALS: BP 139/49
[2016-07-24 17:18] LABS: POINT-OF-CARE METER ID UU13113803
[2016-07-24 20:00] VITALS: BP 142/59
[2016-07-24 21:43] LABS: POINT-OF-CARE METER ID UU13113803; POINT-OF-CARE USER ID RADDRS44
[2016-07-25] VITALS: BP 111/48
[2016-07-25 04:00] VITALS: BP 128/53
[2016-07-25 05:24] LABS: BASOPHIL COUNT 0.1 K/uL (0-0.1); EOSINOPHIL (%) 2.6 % (0-5); EOSINOPHIL COUNT 0.3 K/uL (0-0.3); HEMATOCRIT 27.9 % (36.0-46.0); IMMATURE GRANULOCYTE (%) 0.7 % (0.0-0.7); IMMATURE GRANULOCYTE COUNT 0.1 K/uL; LYMPHOCYTE COUNT 1.4 K/uL (1.0-2.8); MCH 27.8 PG (29.0-34.0); MCHC 29.4 G/DL (30.0-36.0); MCV 94.6 FL (83-99); MEAN PLAT.VOLUME 11.6 uM^3 (9.5-12.4); MONOCYTE (%) 7.7 % (3-12); MONOCYTE COUNT 0.8 K/uL (0-0.8); NEUTROPHIL (%) 74.9 % (45-76); PLATELET COUNT 568 K/uL (156-360); RBC DIS.WIDTH-CV 18.1 % (11.8-14.6); RBC DIS.WIDTH-SD 60.1 % (39-53); RED BLOOD COUNT 2.95 M/uL (3.80-5.20); WHITE BLOOD COUNT 10.7 K/uL (4.1-10.2)
[2016-07-25 05:47] LABS: ANION GAP 7 MEQ/L (2-14); CHLORIDE 97 MEQ/L (99-109); GFR ESTIMATE (CALCULATED) > 59 mL/min/; GLUCOSE 164 mg/dL (70-99); POTASSIUM 4.5 MEQ/L (3.7-5.4); SAMPLE HEMOLYSIS CHECK 0; SAMPLE ICTERIC CHECK 0; SAMPLE LIPEMIA CHECK 0; SODIUM 143 MEQ/L (136-147); UREA NITROGEN (BUN) 11 mg/dL (9-23)
[2016-07-25 05:48] LABS: MAGNESIUM 1.6 mg/dl (1.3-2.7)
[2016-07-25 08:00] VITALS: BP 152/65
[2016-07-25 12:00] VITALS: BP 133/55
[2016-07-25 12:09] LABS: POINT-OF-CARE METER ID UU14174217
[2016-07-25 16:00] VITALS: BP 140/62
[2016-07-25 16:22] LABS: POINT-OF-CARE METER ID UU14174217
[2016-07-25 20:00] VITALS: BP 135/57
[2016-07-25 21:42] LABS: POINT-OF-CARE USER ID RADDRS44
[2016-07-26] VITALS: BP 132/61
[2016-07-26 07:03] LABS: POINT-OF-CARE METER ID UU14162508
[2016-07-26 07:10] LABS: BASOPHIL COUNT 0.1 K/uL (0-0.1); EOSINOPHIL (%) 2.5 % (0-5); EOSINOPHIL COUNT 0.3 K/uL (0-0.3); HEMATOCRIT 29.6 % (36.0-46.0); IMMATURE GRANULOCYTE (%) 0.6 % (0.0-0.7); IMMATURE GRANULOCYTE COUNT 0.1 K/uL; INSTRUMENT ABS NEUTROPHIL CT 8.4 K/uL; LYMPHOCYTE COUNT 1.4 K/uL (1.0-2.8); MCH 27.7 PG (29.0-34.0); MCHC 29.1 G/DL (30.0-36.0); MCV 95.5 FL (83-99); MEAN PLAT.VOLUME 11.8 uM^3 (9.5-12.4); MONOCYTE (%) 7.6 % (3-12); MONOCYTE COUNT 0.8 K/uL (0-0.8); NEUTROPHIL COUNT 8.4 K/uL (1.8-6.4); PLATELET COUNT 640 K/uL (156-360); RBC DIS.WIDTH-CV 18.7 % (11.8-14.6); RBC DIS.WIDTH-SD 63.2 % (39-53)
[2016-07-26 07:34] LABS: ANION GAP 10 MEQ/L (2-14); CHLORIDE 97 MEQ/L (99-109); GFR ESTIMATE (CALCULATED) > 59 mL/min/; GLUCOSE 165 mg/dL (70-99); MAGNESIUM 1.6 mg/dl (1.3-2.7); POTASSIUM 4.6 MEQ/L (3.7-5.4); SAMPLE HEMOLYSIS CHECK 1; SAMPLE ICTERIC CHECK 0; SAMPLE LIPEMIA CHECK 0; SODIUM 143 MEQ/L (136-147); UREA NITROGEN (BUN) 10 mg/dL (9-23)
[2016-07-26 07:40] VITALS: BP 182/87
[2016-07-26 11:15] VITALS: BP 144/67
[2016-07-26 11:28] LABS: POINT-OF-CARE METER ID UU14162508
[2016-07-26 16:05] VITALS: BP 145/67
[2016-07-26 16:19] LABS: POINT-OF-CARE METER ID UU14162508
[2016-07-26 19:35] VITALS: BP 144/63
[2016-07-27 00:08] VITALS: BP 130/60
[2016-07-27 03:10] VITALS: BP 124/59
[2016-07-27 07:27] VITALS: BP 136/63
[2016-07-27 07:49] LABS: ANION GAP 6 MEQ/L (2-14); CHLORIDE 96 MEQ/L (99-109); GFR ESTIMATE (CALCULATED) > 59 mL/min/; GLUCOSE 149 mg/dL (70-99); MAGNESIUM 1.7 mg/dl (1.3-2.7); POTASSIUM 3.8 MEQ/L (3.7-5.4); SAMPLE HEMOLYSIS CHECK 0; SAMPLE ICTERIC CHECK 0; SAMPLE LIPEMIA CHECK 0; SODIUM 139 MEQ/L (136-147); UREA NITROGEN (BUN) 10 mg/dL (9-23)
[2016-07-27 07:50] LABS: BASOPHIL COUNT 0.1 K/uL (0-0.1); EOSINOPHIL COUNT 0.3 K/uL (0-0.3); HEMATOCRIT 27.2 % (36.0-46.0); IMMATURE GRANULOCYTE (%) 0.5 % (0.0-0.7); INSTRUMENT ABS NEUTROPHIL CT 4.9 K/uL; LYMPHOCYTE COUNT 1.4 K/uL (1.0-2.8); MCH 28.4 PG (29.0-34.0); MCV 97.8 FL (83-99); MEAN PLAT.VOLUME 11.5 uM^3 (9.5-12.4); MONOCYTE (%) 9.3 % (3-12); MONOCYTE COUNT 0.7 K/uL (0-0.8); NEUTROPHIL (%) 66.2 % (45-76); NEUTROPHIL COUNT 4.9 K/uL (1.8-6.4); PLATELET COUNT 616 K/uL (156-360); RBC DIS.WIDTH-CV 18.3 % (11.8-14.6); RBC DIS.WIDTH-SD 63.3 % (39-53); RED BLOOD COUNT 2.78 M/uL (3.80-5.20); WHITE BLOOD COUNT 7.4 K/uL (4.1-10.2)
[2016-07-27] MEDS ORDERED: LOVENOX40 MG/0.4 SC (12:17)
== END 2016-07-27 15:26 | disposition home health service (06) | DRG 853 ==
LOC: EME 11:28 → 4WEST 16:14 → EDOF 16:14 → 4WEST 18:08 → 4EAST 07-14 17:36 → 4WEST 07-14 19:49 → 2EAST 07-26 03:04
PROVIDERS: Anesthesiology; Emergency Medicine; Internal Medicine Nephrology; Physician Assistant; Psychiatry & Neurology Neurology; Specialist; Surgery
PROC: 02HV33Z Insertion of Infusion Device into Superior Vena Cava, Percutaneous Approach (ICD-10-PCS; 2016-07-07)
PROC: 30233N1 Transfusion of Nonautologous Red Blood Cells into Peripheral Vein, Percutaneous Approach (ICD-10-PCS; principal; 2016-07-11)
PROC: 0UQG0ZZ Repair Vagina, Open Approach (ICD-10-PCS; principal; 2016-07-11)
PROC: 0D1B0Z4 Bypass Ileum to Cutaneous, Open Approach (ICD-10-PCS; principal; 2016-07-11)
PROC: 0DTE0ZZ Resection of Large Intestine, Open Approach (ICD-10-PCS; principal; 2016-07-11)
PROC: 0DBP0ZZ Excision of Rectum, Open Approach (ICD-10-PCS; principal; 2016-07-11)
PROC: 0DNE0ZZ Release Large Intestine, Open Approach (ICD-10-PCS; principal; 2016-07-11)
PROC: 0DN80ZZ Release Small Intestine, Open Approach (ICD-10-PCS; principal; 2016-07-11)
PROC: 3E0436Z Introduction of Nutritional Substance into Central Vein, Percutaneous Approach (ICD-10-PCS; 2016-07-12)
PROC: 03HY32Z Insertion of Monitoring Device into Upper Artery, Percutaneous Approach (ICD-10-PCS; 2016-07-16)
PROC: 0DQB0ZZ Repair Ileum, Open Approach (ICD-10-PCS; 2016-07-16)
PROC: 5A2204Z Restoration of Cardiac Rhythm, Single (ICD-10-PCS; 2016-07-17)
PROC: 02HV33Z Insertion of Infusion Device into Superior Vena Cava, Percutaneous Approach (ICD-10-PCS; 2016-07-17)
PROC: 0BH17EZ Insertion of Endotracheal Airway into Trachea, Via Natural or Artificial Opening (ICD-10-PCS; 2016-07-17)
PROC: 5A1935Z Respiratory Ventilation, Less than 24 Consecutive Hours (ICD-10-PCS; 2016-07-17)
DX: A41.9 Sepsis, unspecified organism (principal); R65.21 Severe sepsis with septic shock; K59.31 Toxic megacolon; K57.32 Diverticulitis of large intestine without perforation or abscess without bleeding; K62.4 Stenosis of anus and rectum; N82.3 Fistula of vagina to large intestine; K66.0 Peritoneal adhesions (postprocedural) (postinfection); N17.9 Acute kidney failure, unspecified; K63.1 Perforation of intestine (nontraumatic); J96.02 Acute respiratory failure with hypercapnia; E87.0 Hyperosmolality and hypernatremia; K56.7 Ileus, unspecified; R41.0 Disorientation, unspecified; I48.91 Unspecified atrial fibrillation; I10 Essential (primary) hypertension; I25.10 Atherosclerotic heart disease of native coronary artery without angina pectoris; D64.9 Anemia, unspecified; F41.9 Anxiety disorder, unspecified; F32.9 Major depressive disorder, single episode, unspecified; K21.9 Gastro-esophageal reflux disease without esophagitis; E78.5 Hyperlipidemia, unspecified; E86.1 Hypovolemia; E83.42 Hypomagnesemia; E87.2 Acidosis; E83.39 Other disorders of phosphorus metabolism; E87.6 Hypokalemia; E66.9 Obesity, unspecified; S50.812A Abrasion of left forearm, initial encounter; W19.XXXA Unspecified fall, initial encounter; M06.9 Rheumatoid arthritis, unspecified; T81.89XA Other complications of procedures, not elsewhere classified, initial encounter; E11.42 Type 2 diabetes mellitus with diabetic polyneuropathy; I73.9 Peripheral vascular disease, unspecified; I27.2 Other secondary pulmonary hypertension; J44.9 Chronic obstructive pulmonary disease, unspecified; Z79.4 Long term (current) use of insulin; Y92.003 Bedroom of unspecified non-institutional (private) residence as the place of occurrence of the external cause; Z91.81 History of falling; Z95.5 Presence of coronary angioplasty implant and graft; Z86.73 Personal history of transient ischemic attack (TIA), and cerebral infarction without residual deficits; Z87.891 Personal history of nicotine dependence; I25.2 Old myocardial infarction; Z95.828 Presence of other vascular implants and grafts; Z86.718 Personal history of other venous thrombosis and embolism; Z68.32 Body mass index [BMI] 32.0-32.9, adult
CPT/HCPCS: 31500; 36600; 70450; 71010; 71250; 72131; 74000; 74176; 74177; 80048; 80048 91; 80053; 80076; 80202; 80306 90; 81003; 81050; 82150; 82248; 82533 91; 82550; 82550 91; 82553; 82570; 82803; 82948; 83605; 83690; 83735; 84100; 84134; 84156; 84300; 84478; 84484; 84540; 84630 90; 85014; 85018; 85025; 85025 91; 85027; 85610; 85730; 86900; 86901; 86920; 87040; 87070; 87075; 87086; 87205; 87493; 87641; 88305; 88307; 93005; 93306; 94002; 94003; 94640; 94640 76; 94760; 94799; 97530 GO; 97530 GP; 99202; 99281; 99285; J0131; J0153; J0330; J0360; J0610; J0692; J1100; J1170; J1335; J1644; J1650; J1815; J1940; J2060; J2250; J2370; J2405; J2543; J2704; J2710; J3010; J3370; J3475; J3480; J7030; J7040; J7050; J7120; P9016; P9045; S0028; S0030

== ENCOUNTER 2016-07-29 12:36 | Inpatient (IN) | payer OTHER ==
[~2016-07-29] VITALS: Ht 147.3 cm; Wt 69.5 kg
[~2016-07-29 12:36] MED LIST changes: +IRON325 M1 PO; +TRAVATAN Z5 ML BOTH EYES; +VITAMIN B-1100 MG PO
[2016-07-29 13:32] LABS: BASE EXCESS 18.5 mEq/L (-3 to +3); BICARBONATE 45.8 mEq/L (22-26); CARBOXY HGB 1.9 % (0-5); METHEMOGLOBIN 0.9 % (0-1.5); PCO2 74 mm Hg (35-45); PO2 210 mm Hg (80-100)
[2016-07-29 13:33] LABS: COMMENTS - BLOOD GASES +C; DEVICE NRBM; FI02 100 %; O2 FLOW 20 L/MIN; SITE RB; TOTAL RESP RATE 20 resp/min
[2016-07-29 13:39] LABS: BASOPHIL COUNT 0.1 K/uL (0-0.1); EOSINOPHIL (%) 0.3 % (0-5); HEMATOCRIT 31.5 % (36.0-46.0); IMMATURE GRANULOCYTE (%) 0.3 % (0.0-0.7); INSTRUMENT ABS NEUTROPHIL CT 8.3 K/uL; LYMPHOCYTE COUNT 0.8 K/uL (1.0-2.8); MCHC 28.6 G/DL (30.0-36.0); MCV 98.1 FL (83-99); MEAN PLAT.VOLUME 10.6 uM^3 (9.5-12.4); MONOCYTE (%) 3.7 % (3-12); MONOCYTE COUNT 0.4 K/uL (0-0.8); NEUTROPHIL (%) 86.5 % (45-76); NEUTROPHIL COUNT 8.3 K/uL (1.8-6.4); PLATELET COUNT 687 K/uL (156-360); RBC DIS.WIDTH-CV 18.3 % (11.8-14.6); RBC DIS.WIDTH-SD 64.3 % (39-53); RED BLOOD COUNT 3.21 M/uL (3.80-5.20); WHITE BLOOD COUNT 9.6 K/uL (4.1-10.2)
[2016-07-29 13:49] LABS: CHLORIDE 97 mEq/L (99-109); POTASSIUM 4.1 mEq/L (3.7-5.4); SODIUM 141 mEq/L (136-147)
[2016-07-29 13:50] LABS: GLUCOSE 162 mg/dL (70-99)
[2016-07-29 13:52] LABS: ANION GAP 7 MEQ/L (2-14)
[2016-07-29 13:54] LABS: GFR ESTIMATE (CALCULATED) > 59 mL/min/
[2016-07-29 13:55] LABS: UREA NITROGEN (BUN) 7 mg/dL (9-23)
[2016-07-29 14:00] LABS: TROP-I INTERPRETATION NEGATIVE
[2016-07-29 15:59] LABS: ADD MIUA? YES; BILIRUBIN NEGATIVE; BLOOD SMALL; COLOR YELLOW ((YELLOW)); GLUCOSE (STRIP) NEGATIVE; KETONES 20; LEUKOCYTES LARGE; NITRITE NEGATIVE; PROTEIN (STRIP) 30; SPECIFIC GRAVITY 1.018 (1.000-1.030); UROBILINOGEN 0.2 MG/DL (0.2-1.0)
[2016-07-29 16:06] LABS: BACTERIA RARE /HPF; EPITHELIAL CELLS 1+ /HPF; MUCUS TRACE /LPF; RED BLOOD CELLS 15-20 /HPF (0-5); UCUL ADDED? YES; UNCLASSIFIED CRYSTALS 2+ /HPF; WHITE BLOOD CELLS TNTC /HPF (0-5)
[2016-07-29] MEDS ORDERED: AMITRIPTYLINE150 MG PO (16:54)
[2016-07-29 19:06] VITALS: BP 177/80
[2016-07-29 19:20] VITALS: BP 165/77
[2016-07-29 20:34] LABS: TROP-I INTERPRETATION NEGATIVE; TROPONIN-I 0.13 ng/mL (0.0-0.30)
[2016-07-29 21:22] LABS: POINT-OF-CARE METER ID UU13113781
[2016-07-29 23:42] VITALS: BP 133/67
[2016-07-30 03:12] LABS: TROP-I INTERPRETATION NEGATIVE; TROPONIN-I 0.09 ng/mL (0.0-0.30)
[2016-07-30 03:39] VITALS: BP 144/69
[2016-07-30 07:16] LABS: HEMATOCRIT 28.9 % (36.0-46.0); MCH 27.7 PG (29.0-34.0); MEAN PLAT.VOLUME 11.5 uM^3 (9.5-12.4); PLATELET COUNT 508 K/uL (156-360); RBC DIS.WIDTH-CV 18.4 % (11.8-14.6); RBC DIS.WIDTH-SD 65.1 % (39-53); RED BLOOD COUNT 2.92 M/uL (3.80-5.20); WHITE BLOOD COUNT 8.6 K/uL (4.1-10.2)
[2016-07-30 07:33] LABS: ANION GAP 7 MEQ/L (2-14); CHLORIDE 98 MEQ/L (99-109); GFR ESTIMATE (CALCULATED) > 59 mL/min/; POTASSIUM 3.7 MEQ/L (3.7-5.4); SAMPLE HEMOLYSIS CHECK 0; SAMPLE ICTERIC CHECK 0; SAMPLE LIPEMIA CHECK 0; SODIUM 144 MEQ/L (136-147); UREA NITROGEN (BUN) 8 mg/dL (9-23)
[2016-07-30 07:39] LABS: GLUCOSE 54 mg/dL (70-99)
[2016-07-30 07:50] VITALS: BP 163/72
[2016-07-30 12:00] VITALS: BP 145/80
[2016-07-30 15:14] LABS: HEMATOCRIT 31.1 % (36.0-46.0); MCV 95.4 FL (83-99)
[2016-07-30 17:00] VITALS: BP 148/82
[2016-07-30 20:15] VITALS: BP 174/78
[2016-07-30 23:48] VITALS: BP 145/71
[2016-07-31 04:15] VITALS: BP 165/71
[2016-07-31 06:02] LABS: BASOPHIL COUNT 0.1 K/uL (0-0.1); EOSINOPHIL (%) 4.9 % (0-5); EOSINOPHIL COUNT 0.5 K/uL (0-0.3); HEMATOCRIT 29.3 % (36.0-46.0); IMMATURE GRANULOCYTE (%) 0.4 % (0.0-0.7); INSTRUMENT ABS NEUTROPHIL CT 6.9 K/uL; LYMPHOCYTE COUNT 1.4 K/uL (1.0-2.8); MCH 27.8 PG (29.0-34.0); MCHC 28.3 G/DL (30.0-36.0); MEAN PLAT.VOLUME 10.8 uM^3 (9.5-12.4); MONOCYTE (%) 6.3 % (3-12); MONOCYTE COUNT 0.6 K/uL (0-0.8); NEUTROPHIL (%) 72.7 % (45-76); NEUTROPHIL COUNT 6.9 K/uL (1.8-6.4); PLATELET COUNT 647 K/uL (156-360); RBC DIS.WIDTH-CV 18.6 % (11.8-14.6); RBC DIS.WIDTH-SD 64.7 % (39-53); RED BLOOD COUNT 2.99 M/uL (3.80-5.20); WHITE BLOOD COUNT 9.5 K/uL (4.1-10.2)
[2016-07-31 06:24] LABS: ALKALINE PHOSPHATASE 110 IU/L (3-129); ANION GAP 6 MEQ/L (2-14); CHLORIDE 96 MEQ/L (99-109); GFR ESTIMATE (CALCULATED) > 59 mL/min/; SAMPLE HEMOLYSIS CHECK 0; SAMPLE ICTERIC CHECK 0; SAMPLE LIPEMIA CHECK 0; SODIUM 141 MEQ/L (136-147); TOTAL BILIRUBIN 0.3 MG/DL (0.0-1.0); UREA NITROGEN (BUN) 7 mg/dL (9-23)
[2016-07-31 06:25] LABS: GLUCOSE 182 mg/dL (70-99)
[2016-07-31 07:52] VITALS: BP 188/87
[2016-07-31 08:29] LABS: VANCOMYCIN, TROUGH 8.9 MCG/ML (10-20)
[2016-07-31 08:53] LABS: IMM.RETIC FRACTION 32.8 % (3-19); RETIC HGB EQUIVALENT 29.1 (28-36); RETICULOCYTE COUNT 6.6 % (0.5-1.8)
[2016-07-31 09:08] LABS: FERRITIN 54 NG/ML (10-291); IRON 30 MCG/DL (35-150)
[2016-07-31 11:38] VITALS: BP 162/67
[2016-07-31 12:19] LABS: POINT-OF-CARE METER ID UU13113781
[2016-07-31 15:30] VITALS: BP 185/81
[2016-07-31 17:20] LABS: POINT-OF-CARE METER ID UU13113781
[2016-07-31 19:24] VITALS: BP 160/100
[2016-07-31 20:25] LABS: POINT-OF-CARE METER ID UU13113781
[2016-08-01] VITALS (7 sets, daily range): BP systolic 143–174; BP diastolic 65–74
[2016-08-01 06:52] LABS: BASOPHIL COUNT 0.1 K/uL (0-0.1); EOSINOPHIL (%) 4.6 % (0-5); EOSINOPHIL COUNT 0.4 K/uL (0-0.3); HEMATOCRIT 28.4 % (36.0-46.0); IMMATURE GRANULOCYTE (%) 0.5 % (0.0-0.7); IMMATURE GRANULOCYTE COUNT 0.1 K/uL; INSTRUMENT ABS NEUTROPHIL CT 6.8 K/uL; LYMPHOCYTE COUNT 1.5 K/uL (1.0-2.8); MCH 28.7 PG (29.0-34.0); MCHC 29.6 G/DL (30.0-36.0); MCV 96.9 FL (83-99); MEAN PLAT.VOLUME 10.9 uM^3 (9.5-12.4); MONOCYTE (%) 7.3 % (3-12); MONOCYTE COUNT 0.7 K/uL (0-0.8); NEUTROPHIL (%) 70.7 % (45-76); NEUTROPHIL COUNT 6.8 K/uL (1.8-6.4); PLATELET COUNT 583 K/uL (156-360); RBC DIS.WIDTH-CV 18.6 % (11.8-14.6); RBC DIS.WIDTH-SD 65.3 % (39-53); RED BLOOD COUNT 2.93 M/uL (3.80-5.20); WHITE BLOOD COUNT 9.6 K/uL (4.1-10.2)
[2016-08-01 07:31] LABS: ALKALINE PHOSPHATASE 115 IU/L (3-129); ANION GAP ND MEQ/L (2-14); CHLORIDE 93 MEQ/L (99-109); GFR ESTIMATE (CALCULATED) > 59 mL/min/; GLUCOSE 162 mg/dL (70-99); POTASSIUM 3.6 MEQ/L (3.7-5.4); SAMPLE HEMOLYSIS CHECK 0; SAMPLE ICTERIC CHECK 0; SAMPLE LIPEMIA CHECK 0; SODIUM 141 MEQ/L (136-147); TOTAL BILIRUBIN 0.3 MG/DL (0.0-1.0); UREA NITROGEN (BUN) 8 mg/dL (9-23)
[2016-08-01 07:32] LABS: CARBON DIOXIDE (BICARBONATE) > 40.0 MEQ/L (20-31)
[2016-08-01 07:56] LABS: POINT-OF-CARE METER ID UU13113781; POINT-OF-CARE USER ID ENVKC36
[2016-08-01 11:56] LABS: POINT-OF-CARE USER ID ENVKC36
[2016-08-01 16:32] LABS: POINT-OF-CARE METER ID UU13113781; POINT-OF-CARE USER ID ENVKC36
[2016-08-02 03:00] VITALS: BP 160/74
[2016-08-02 07:44] VITALS: BP 163/70
[2016-08-02 09:20] LABS: HEMATOCRIT 29.9 % (36.0-46.0); MCH 27.6 PG (29.0-34.0); MCHC 29.1 G/DL (30.0-36.0); MCV 94.9 FL (83-99); MEAN PLAT.VOLUME 10.4 uM^3 (9.5-12.4); PLATELET COUNT 581 K/uL (156-360); RBC DIS.WIDTH-CV 18.4 % (11.8-14.6); RBC DIS.WIDTH-SD 63.9 % (39-53); RED BLOOD COUNT 3.15 M/uL (3.80-5.20); WHITE BLOOD COUNT 10.6 K/uL (4.1-10.2)
[2016-08-02 09:57] LABS: ANION GAP 8 MEQ/L (2-14); CHLORIDE 94 MEQ/L (99-109); GFR ESTIMATE (CALCULATED) > 59 mL/min/; GLUCOSE 156 mg/dL (70-99); POTASSIUM 3.8 MEQ/L (3.7-5.4); SAMPLE HEMOLYSIS CHECK 0; SAMPLE ICTERIC CHECK 0; SAMPLE LIPEMIA CHECK 0; SODIUM 140 MEQ/L (136-147); UREA NITROGEN (BUN) 9 mg/dL (9-23)
[2016-08-02 11:07] VITALS: BP 118/58
[2016-08-02] MEDS ORDERED: LISINOPRIL10 MG PO (14:00)
[2016-08-02] MEDS ORDERED: LASIX40 MG PO (14:00)
[2016-08-02] MEDS ORDERED: LEVEMIR100 UNIT/2 SC (14:38)
[2016-08-02 15:18] VITALS: BP 133/59
== END 2016-08-02 18:06 | DRG 190 ==
LOC: EME 12:36 → EDOF 16:52 → 5SOUTH 16:52 → 4EAST 16:52 → 5SOUTH 16:52 → 4EAST 18:18 → 5SOUTH 08-02 02:35
PROVIDERS: Emergency Medicine; Hospitalist; Internal Medicine
DX: J44.1 Chronic obstructive pulmonary disease with (acute) exacerbation (principal); J96.22 Acute and chronic respiratory failure with hypercapnia; I50.33 Acute on chronic diastolic (congestive) heart failure; D64.9 Anemia, unspecified; J96.21 Acute and chronic respiratory failure with hypoxia; E87.2 Acidosis; I48.92 Unspecified atrial flutter; D75.89 Other specified diseases of blood and blood-forming organs; N39.0 Urinary tract infection, site not specified; I48.91 Unspecified atrial fibrillation; N82.3 Fistula of vagina to large intestine; G47.30 Sleep apnea, unspecified; F41.9 Anxiety disorder, unspecified; M06.9 Rheumatoid arthritis, unspecified; K21.9 Gastro-esophageal reflux disease without esophagitis; N28.9 Disorder of kidney and ureter, unspecified; I25.10 Atherosclerotic heart disease of native coronary artery without angina pectoris; E78.5 Hyperlipidemia, unspecified; E46 Unspecified protein-calorie malnutrition; F32.9 Major depressive disorder, single episode, unspecified; E11.40 Type 2 diabetes mellitus with diabetic neuropathy, unspecified; I11.0 Hypertensive heart disease with heart failure; Q27.33 Arteriovenous malformation of digestive system vessel; J98.11 Atelectasis; F17.200 Nicotine dependence, unspecified, uncomplicated; Z93.3 Colostomy status; Z98.0 Intestinal bypass and anastomosis status; Z68.35 Body mass index [BMI] 35.0-35.9, adult; Z79.4 Long term (current) use of insulin; Z86.718 Personal history of other venous thrombosis and embolism; Z95.5 Presence of coronary angioplasty implant and graft; I25.2 Old myocardial infarction; Z75.1 Person awaiting admission to adequate facility elsewhere; Z86.73 Personal history of transient ischemic attack (TIA), and cerebral infarction without residual deficits; Z90.49 Acquired absence of other specified parts of digestive tract; Z91.19 Patient's noncompliance with other medical treatment and regimen; Z83.3 Family history of diabetes mellitus
CPT/HCPCS: 36600; 71010; 71250; 78582; 80048; 80053; 80202; 81003; 82272; 82565; 82607; 82728; 82746; 82803; 82948; 83540; 83605; 83880; 84466; 84484; 85014; 85018; 85025; 85027; 85045; 87040; 87070; 87077; 87086; 87205; 93005; 93970; 94640; 94640 76; 94799; 97530 GO; 97530 GP; 99202; 99281; 99285; A9540; A9567; J1650; J1815; J1940; J2543; J3010; J3370; J7050

== ENCOUNTER 2016-08-12 21:04 | Inpatient (IN) | payer OTHER ==
[~2016-08-12] VITALS: Ht 162.6 cm; Wt 62.6 kg
[~2016-08-12 21:04] MED LIST changes: +LASIX40 MG PO; +LEVEMIR100 UNIT/2 SC
[2016-08-12 21:55] LABS: HEMATOCRIT 28.4 % (36.0-46.0); MCH 27.8 PG (29.0-34.0); MCHC 29.9 G/DL (30.0-36.0); RBC DIS.WIDTH-CV 16.2 % (11.8-14.6); RBC DIS.WIDTH-SD 55.1 % (39-53); RED BLOOD COUNT 3.06 M/uL (3.80-5.20); WHITE BLOOD COUNT 9.3 K/uL (4.1-10.2)
[2016-08-12 22:02] LABS: CHLORIDE 96 mEq/L (99-109); SODIUM 137 mEq/L (136-147)
[2016-08-12 22:03] LABS: GLUCOSE 95 mg/dL (70-99)
[2016-08-12 22:05] LABS: ANION GAP 7 MEQ/L (2-14)
[2016-08-12 22:12] LABS: GFR ESTIMATE (CALCULATED) > 59 mL/min/; POTASSIUM 5.3 mEq/L (3.7-5.4); UREA NITROGEN (BUN) 26 mg/dL (9-23)
[2016-08-12 22:43] LABS: MCV 92.8 FL (83-99); MEAN PLAT.VOLUME 11.2 uM^3 (9.5-12.4); PLATELET COUNT 342 K/uL (156-360); TOTAL BILIRUBIN 0.2 mg/dL (0.0-1.0)
[2016-08-12 22:44] LABS: ALKALINE PHOSPHATASE 91 IU/L (3-129)
[2016-08-12 22:46] LABS: DIRECT BILIRUBIN 0.1 mg/dL (0.0-0.3)
[2016-08-12 22:47] LABS: LIPASE 130 U/L (1.0-51.0)
[2016-08-12 23:24] LABS: INTER. NORMALIZED RATIO 1.1; PROTHROMBIN TIME 11.5 (9.2-11.2); PTT 28.4 (25-32)
[2016-08-13] VITALS (12 sets, daily range): BP systolic 116–150; BP diastolic 53–69
[2016-08-13 00:29] LABS: ADD MIUA? YES; BILIRUBIN NEGATIVE; BLOOD SMALL; COLOR YELLOW ((YELLOW)); GLUCOSE (STRIP) NEGATIVE; KETONES NEGATIVE; LEUKOCYTES NEGATIVE; NITRITE NEGATIVE; PROTEIN (STRIP) NEGATIVE; SPECIFIC GRAVITY 1.021 (1.000-1.030); UROBILINOGEN 0.2 MG/DL (0.2-1.0)
[2016-08-13 00:38] LABS: BACTERIA NONE SEEN /HPF; EPITHELIAL CELLS RARE /HPF; HYALINE CASTS 0-5 /LPF; MUCUS TRACE /LPF; UCUL ADDED? NO; WHITE BLOOD CELLS 0-5 /HPF (0-5)
[2016-08-13] MEDS ORDERED: DULCOLAX10 MG PR (01:16)
[2016-08-13] MEDS ORDERED: FLEET ENEMA-AD118 ML PR (01:17)
[2016-08-13] MEDS ORDERED: CORTIZONE-10 PL57 GM TP (01:18)
[2016-08-13] MEDS ORDERED: LASIX40 MG PO (01:19)
[2016-08-13] MEDS ORDERED: MILK OF MAGN PO (01:20)
[2016-08-13] MEDS ORDERED: XARELTO20 MG PO (01:21)
[2016-08-13 04:25] LABS: HEMATOCRIT 26.3 % (36.0-46.0); MCV 93.6 FL (83-99)
[2016-08-13 10:19] LABS: HEMATOCRIT 33.5 % (36.0-46.0); MCV 94.6 FL (83-99)
[2016-08-13 10:43] LABS: ANION GAP 6 MEQ/L (2-14); CHLORIDE 100 MEQ/L (99-109); GFR ESTIMATE (CALCULATED) > 59 mL/min/; GLUCOSE 145 mg/dL (70-99); POTASSIUM 4.5 MEQ/L (3.7-5.4); SAMPLE HEMOLYSIS CHECK 0; SAMPLE ICTERIC CHECK 0; SAMPLE LIPEMIA CHECK 0; SODIUM 139 MEQ/L (136-147); UREA NITROGEN (BUN) 17 mg/dL (9-23)
[2016-08-13 10:53] LABS: POINT-OF-CARE METER ID UU13113807
[2016-08-13 13:11] LABS: POINT-OF-CARE METER ID UU13113807
[2016-08-13 15:40] LABS: HEMATOCRIT 35.5 % (36.0-46.0); MCV 91.7 FL (83-99)
[2016-08-13 17:32] LABS: POINT-OF-CARE METER ID UU13113807
[2016-08-13 21:44] LABS: POINT-OF-CARE METER ID UU13113807
[2016-08-14] VITALS (7 sets, daily range): BP systolic 131–151; BP diastolic 61–68
[2016-08-14 05:48] LABS: HEMATOCRIT 39.1 % (36.0-46.0); MCV 91.4 FL (83-99)
[2016-08-14 06:27] LABS: ANION GAP 7 MEQ/L (2-14); CHLORIDE 97 MEQ/L (99-109); GFR ESTIMATE (CALCULATED) > 59 mL/min/; GLUCOSE 135 mg/dL (70-99); POTASSIUM 4.2 MEQ/L (3.7-5.4); SAMPLE HEMOLYSIS CHECK 0; SAMPLE ICTERIC CHECK 0; SAMPLE LIPEMIA CHECK 0; SODIUM 136 MEQ/L (136-147); UREA NITROGEN (BUN) 9 mg/dL (9-23)
[2016-08-14 08:57] LABS: POINT-OF-CARE METER ID UU13113807
[2016-08-14 12:22] LABS: POINT-OF-CARE METER ID UU13113807
[2016-08-14 13:22] LABS: HEMATOCRIT 36.9 % (36.0-46.0)
[2016-08-14 16:56] LABS: POINT-OF-CARE METER ID UU13113807
[2016-08-14 21:34] LABS: POINT-OF-CARE METER ID UU13113807
[2016-08-15 03:40] VITALS: BP 138/67
[2016-08-15 05:29] LABS: BASOPHIL COUNT 0.1 K/uL (0-0.1); EOSINOPHIL (%) 6.8 % (0-5); EOSINOPHIL COUNT 0.5 K/uL (0-0.3); HEMATOCRIT 37.3 % (36.0-46.0); IMMATURE GRANULOCYTE (%) 0.3 % (0.0-0.7); LYMPHOCYTE COUNT 1.4 K/uL (1.0-2.8); MCH 28.5 PG (29.0-34.0); MCHC 31.4 G/DL (30.0-36.0); MCV 90.8 FL (83-99); MONOCYTE (%) 7.2 % (3-12); MONOCYTE COUNT 0.6 K/uL (0-0.8); NEUTROPHIL (%) 65.6 % (45-76); PLATELET COUNT 314 K/uL (156-360); RBC DIS.WIDTH-SD 49.8 % (39-53); WHITE BLOOD COUNT 7.6 K/uL (4.1-10.2)
[2016-08-15 06:04] LABS: RED BLOOD COUNT 4.11 M/uL (3.80-5.20)
[2016-08-15 08:07] VITALS: BP 132/67
[2016-08-15 09:11] LABS: POINT-OF-CARE METER ID UU14149396
[2016-08-15 11:36] VITALS: BP 114/62
[2016-08-15 12:19] LABS: POINT-OF-CARE METER ID UU14149396
[2016-08-15 15:43] VITALS: BP 120/68
[2016-08-15 17:41] LABS: POINT-OF-CARE METER ID UU14149396
[2016-08-15 19:20] VITALS: BP 159/73
[2016-08-15 21:30] LABS: POINT-OF-CARE METER ID UU14149396
[2016-08-15 23:04] VITALS: BP 164/77
[2016-08-16 04:35] VITALS: BP 166/77
[2016-08-16 05:27] LABS: BASOPHIL COUNT 0.1 K/uL (0-0.1); EOSINOPHIL COUNT 0.4 K/uL (0-0.3); HEMATOCRIT 35.6 % (36.0-46.0); IMMATURE GRANULOCYTE (%) 0.3 % (0.0-0.7); INSTRUMENT ABS NEUTROPHIL CT 4.9 K/uL; LYMPHOCYTE COUNT 1.8 K/uL (1.0-2.8); MCH 28.2 PG (29.0-34.0); MCHC 31.2 G/DL (30.0-36.0); MCV 90.4 FL (83-99); MEAN PLAT.VOLUME 10.9 uM^3 (9.5-12.4); MONOCYTE (%) 8.2 % (3-12); MONOCYTE COUNT 0.6 K/uL (0-0.8); NEUTROPHIL (%) 62.2 % (45-76); NEUTROPHIL COUNT 4.9 K/uL (1.8-6.4); PLATELET COUNT 337 K/uL (156-360); RBC DIS.WIDTH-CV 14.6 % (11.8-14.6); RBC DIS.WIDTH-SD 48.9 % (39-53); RED BLOOD COUNT 3.94 M/uL (3.80-5.20); WHITE BLOOD COUNT 7.8 K/uL (4.1-10.2)
[2016-08-16 07:40] VITALS: BP 116/56
[2016-08-16 08:39] LABS: POINT-OF-CARE METER ID UU14149398
[2016-08-16 11:43] VITALS: BP 109/58
[2016-08-16 12:20] LABS: POINT-OF-CARE METER ID UU14149398
[2016-08-16 15:26] VITALS: BP 105/59
[2016-08-16 17:31] LABS: POINT-OF-CARE METER ID UU14149398
[2016-08-16] MEDS ORDERED: OXYCODONE-APAP1 EAC6 PO (19:10)
[2016-08-16] MEDS ORDERED: GLUCOPHAGE850 MG PO (19:16)
[2016-08-16] MEDS ORDERED: ASPIR-LOW81 MG PO (19:16)
[2016-08-16] MEDS ORDERED: XARELTO20 MG PO (19:16)
[2016-08-16] MEDS ORDERED: PROAIR HFA8.5 GM IH (19:16)
[2016-08-16] MEDS ORDERED: TRAVATAN Z5 ML BOTH EYES (19:16)
[2016-08-16] MEDS ORDERED: AMITRIPTYLINE150 MG PO (19:16)
[2016-08-16] MEDS ORDERED: GABAPENTIN400 MG PO (19:16)
[2016-08-16] MEDS ORDERED: LEXAPRO20 MG PO (19:16)
[2016-08-16] MEDS ORDERED: ADVAIR HFA120 INHALA IH (19:16)
[2016-08-16] MEDS ORDERED: LOPRESSOR25 MG PO (19:16)
[2016-08-16] MEDS ORDERED: DULCOLAX5 MG PO (19:16)
[2016-08-16] MEDS ORDERED: ZOCOR40 MG PO (19:16)
[2016-08-16 19:50] VITALS: BP 126/61
== END 2016-08-16 20:15 | disposition home health service (06) | DRG 393 ==
LOC: EME → EDBD 21:04 → 4SOUTH 08-13 00:43 → EDOF 08-13 00:43 → 4SOUTH 08-13 08:21
PROVIDERS: Emergency Medicine; Internal Medicine
PROC: 30233N1 Transfusion of Nonautologous Red Blood Cells into Peripheral Vein, Percutaneous Approach (ICD-10-PCS; principal; 2016-08-13)
DX: K94.11 Enterostomy hemorrhage (principal); K55.21 Angiodysplasia of colon with hemorrhage; I11.0 Hypertensive heart disease with heart failure; I50.32 Chronic diastolic (congestive) heart failure; D62 Acute posthemorrhagic anemia; K92.2 Gastrointestinal hemorrhage, unspecified; I25.10 Atherosclerotic heart disease of native coronary artery without angina pectoris; E11.9 Type 2 diabetes mellitus without complications; E78.5 Hyperlipidemia, unspecified; F32.9 Major depressive disorder, single episode, unspecified; F41.9 Anxiety disorder, unspecified; I25.2 Old myocardial infarction; K21.9 Gastro-esophageal reflux disease without esophagitis; I73.9 Peripheral vascular disease, unspecified; J44.9 Chronic obstructive pulmonary disease, unspecified; Z86.718 Personal history of other venous thrombosis and embolism; Z86.73 Personal history of transient ischemic attack (TIA), and cerebral infarction without residual deficits; Z87.891 Personal history of nicotine dependence; Z90.49 Acquired absence of other specified parts of digestive tract; Z98.61 Coronary angioplasty status; R10.9 Unspecified abdominal pain; K80.20 Calculus of gallbladder without cholecystitis without obstruction; J98.11 Atelectasis
CPT/HCPCS: 74177; 80048; 80076; 81003; 82948; 83690; 85014; 85018; 85025; 85027; 85610; 85730; 86870; 86900; 86901; 86905; 86920; 94799; 99202; 99281; 99285; C9113; J1170; J1815; J1940; J2405; J3010; J7030; P9016

== ENCOUNTER 2016-08-30 08:54 | Emergency (ER) | payer OTHER ==
[~2016-08-30] VITALS: Ht 147.3 cm; Wt 61.9 kg
[~2016-08-30 08:54] MED LIST changes: +CORTIZONE-10 PL57 GM TP; +DULCOLAX10 MG PR; +FLEET ENEMA-AD118 ML PR; +MILK OF MAGN PO; +XARELTO20 MG PO
[2016-08-30 13:36] LABS: BASOPHIL COUNT 0.1 K/uL (0-0.1); EOSINOPHIL (%) 7.3 % (0-5); EOSINOPHIL COUNT 0.6 K/uL (0-0.3); HEMATOCRIT 37.4 % (36.0-46.0); IMMATURE GRANULOCYTE (%) 0.4 % (0.0-0.7); LYMPHOCYTE COUNT 2.4 K/uL (1.0-2.8); MCH 28.1 PG (29.0-34.0); MCV 90.6 FL (83-99); MEAN PLAT.VOLUME 9.7 uM^3 (9.5-12.4); MONOCYTE (%) 6.5 % (3-12); MONOCYTE COUNT 0.5 K/uL (0-0.8); NEUTROPHIL (%) 52.4 % (45-76); RBC DIS.WIDTH-CV 15.2 % (11.8-14.6); RBC DIS.WIDTH-SD 49.9 % (39-53); RED BLOOD COUNT 4.13 M/uL (3.80-5.20); WHITE BLOOD COUNT 7.5 K/uL (4.1-10.2)
[2016-08-30 13:37] LABS: PLATELET COUNT 464 K/uL (156-360)
[2016-08-30 13:38] LABS: CHLORIDE 99 mEq/L (99-109); POTASSIUM 4.6 mEq/L (3.7-5.4); SODIUM 135 mEq/L (136-147)
[2016-08-30 13:39] LABS: GLUCOSE 158 mg/dL (70-99)
[2016-08-30 13:41] LABS: ANION GAP 8 MEQ/L (2-14)
[2016-08-30 13:43] LABS: GFR ESTIMATE (CALCULATED) > 59 mL/min/
[2016-08-30 13:44] LABS: UREA NITROGEN (BUN) 23 mg/dL (9-23)
[2016-08-30] MEDS ORDERED: BACTRIM,SEPT1 TABLET PO (14:51)
[2016-08-30 15:04] VITALS: BP 145/88
== END 2016-08-30 15:06 | disposition home or self-care (01) ==
LOC: EME 08:54
PROVIDERS: Physician Assistant
DX: L03.115 Cellulitis of right lower limb (principal); E11.9 Type 2 diabetes mellitus without complications; Z98.890 Other specified postprocedural states; Z79.84 Long term (current) use of oral hypoglycemic drugs
CPT/HCPCS: 73610; 80048; 85025; 99281; 99284

== ENCOUNTER 2016-09-02 09:42 | Inpatient (IN) | payer OTHER ==
[~2016-09-02] VITALS: Ht 147.3 cm; Wt 63.3 kg
[2016-09-02 12:23] LABS: BASOPHIL COUNT 0.1 K/uL (0-0.1); EOSINOPHIL (%) 6.1 % (0-5); EOSINOPHIL COUNT 0.5 K/uL (0-0.3); HEMATOCRIT 35.6 % (36.0-46.0); IMMATURE GRANULOCYTE (%) 0.3 % (0.0-0.7); LYMPHOCYTE COUNT 1.9 K/uL (1.0-2.8); MCHC 31.5 G/DL (30.0-36.0); MEAN PLAT.VOLUME 9.7 uM^3 (9.5-12.4); MONOCYTE COUNT 0.4 K/uL (0-0.8); NEUTROPHIL (%) 63.9 % (45-76); PLATELET COUNT 391 K/uL (156-360); RBC DIS.WIDTH-CV 15.7 % (11.8-14.6); WHITE BLOOD COUNT 7.9 K/uL (4.1-10.2)
[2016-09-02 12:36] LABS: CHLORIDE 101 mEq/L (99-109); SODIUM 134 mEq/L (136-147)
[2016-09-02 12:37] LABS: POTASSIUM 5.6 mEq/L (3.7-5.4)
[2016-09-02 12:38] LABS: GLUCOSE 142 mg/dL (70-99)
[2016-09-02 12:39] LABS: ANION GAP 9 MEQ/L (2-14)
[2016-09-02 12:42] LABS: GFR ESTIMATE (CALCULATED) > 59 mL/min/; UREA NITROGEN (BUN) 23 mg/dL (9-23)
[2016-09-02] MEDS ORDERED: BACTRIM,SEPT1 TABLET PO (15:56)
[2016-09-02] MEDS ORDERED: PRADAXA150 MG PO (15:59)
[2016-09-02] MEDS ORDERED: LANTUS 10100 UNITS/ SC (16:01)
[2016-09-02] MEDS ORDERED: LASIX40 MG PO (16:01)
[2016-09-02] MEDS ORDERED: AMARYL2 MG PO (16:02)
[2016-09-02] MEDS ORDERED: GLUCOPHAGE850 MG PO (16:05)
[2016-09-02] MEDS ORDERED: NYSTOP60 GM TP (16:06)
[2016-09-02 17:50] VITALS: BP 107/53
[2016-09-02 19:12] VITALS: BP 124/65
[2016-09-02 23:18] VITALS: BP 110/59
[2016-09-03 04:11] VITALS: BP 132/65
[2016-09-03 07:23] LABS: BASOPHIL COUNT 0.1 K/uL (0-0.1); EOSINOPHIL (%) 7.1 % (0-5); EOSINOPHIL COUNT 0.5 K/uL (0-0.3); IMMATURE GRANULOCYTE (%) 0.4 % (0.0-0.7); INSTRUMENT ABS NEUTROPHIL CT 4.4 K/uL; LYMPHOCYTE COUNT 1.9 K/uL (1.0-2.8); MCH 27.3 PG (29.0-34.0); MCHC 30.8 G/DL (30.0-36.0); MCV 88.7 FL (83-99); MEAN PLAT.VOLUME 9.2 uM^3 (9.5-12.4); MONOCYTE COUNT 0.5 K/uL (0-0.8); NEUTROPHIL (%) 59.5 % (45-76); NEUTROPHIL COUNT 4.4 K/uL (1.8-6.4); PLATELET COUNT 394 K/uL (156-360); RBC DIS.WIDTH-CV 15.8 % (11.8-14.6); RBC DIS.WIDTH-SD 51.8 % (39-53); RED BLOOD COUNT 4.06 M/uL (3.80-5.20); WHITE BLOOD COUNT 7.5 K/uL (4.1-10.2)
[2016-09-03 07:30] VITALS: BP 118/64
[2016-09-03 08:06] LABS: ANION GAP 7 MEQ/L (2-14); CHLORIDE 103 MEQ/L (99-109); GFR ESTIMATE (CALCULATED) > 59 mL/min/; GLUCOSE 151 mg/dL (70-99); POTASSIUM 5.2 MEQ/L (3.7-5.4); SAMPLE HEMOLYSIS CHECK 0; SAMPLE ICTERIC CHECK 0; SAMPLE LIPEMIA CHECK 0; SODIUM 134 MEQ/L (136-147); UREA NITROGEN (BUN) 13 mg/dL (9-23)
[2016-09-03 11:58] VITALS: BP 139/78
[2016-09-03 15:10] VITALS: BP 122/65
[2016-09-03 19:17] VITALS: BP 130/61
[2016-09-03 23:41] VITALS: BP 102/61
[2016-09-04 03:19] VITALS: BP 111/58
[2016-09-04 07:33] LABS: HEMATOCRIT 37.2 % (36.0-46.0); MCH 27.6 PG (29.0-34.0); MCHC 31.2 G/DL (30.0-36.0); MCV 88.4 FL (83-99); MEAN PLAT.VOLUME 9.1 uM^3 (9.5-12.4); PLATELET COUNT 375 K/uL (156-360); RBC DIS.WIDTH-CV 15.9 % (11.8-14.6); RBC DIS.WIDTH-SD 50.8 % (39-53); RED BLOOD COUNT 4.21 M/uL (3.80-5.20); WHITE BLOOD COUNT 6.7 K/uL (4.1-10.2)
[2016-09-04 08:00] LABS: ANION GAP 10 MEQ/L (2-14); C-REACTIVE PROTEIN 7.1 MG/L (0-10); CHLORIDE 101 MEQ/L (99-109); GFR ESTIMATE (CALCULATED) > 59 mL/min/; GLUCOSE 166 mg/dL (70-99); POTASSIUM 4.5 MEQ/L (3.7-5.4); SAMPLE HEMOLYSIS CHECK 0; SAMPLE ICTERIC CHECK 0; SAMPLE LIPEMIA CHECK 0; SODIUM 134 MEQ/L (136-147); UREA NITROGEN (BUN) 18 mg/dL (9-23)
[2016-09-04 08:06] LABS: ERTH.SED.RATE 76 MM/HR (0-30)
[2016-09-04 08:39] VITALS: BP 109/60
[2016-09-04 11:45] VITALS: BP 108/56
[2016-09-04 11:58] LABS: POINT-OF-CARE METER ID UU14208750
[2016-09-04 15:49] VITALS: BP 106/68
[2016-09-04 16:31] LABS: POINT-OF-CARE METER ID UU14208750
[2016-09-04 18:55] VITALS: BP 119/62
[2016-09-04 21:35] LABS: POINT-OF-CARE METER ID UU14208750
[2016-09-04 23:22] VITALS: BP 160/79
[2016-09-05 03:36] VITALS: BP 100/61
[2016-09-05 06:50] LABS: BASOPHIL COUNT 0.1 K/uL (0-0.1); EOSINOPHIL (%) 7.2 % (0-5); EOSINOPHIL COUNT 0.5 K/uL (0-0.3); HEMATOCRIT 36.2 % (36.0-46.0); IMMATURE GRANULOCYTE (%) 0.3 % (0.0-0.7); INSTRUMENT ABS NEUTROPHIL CT 3.9 K/uL; LYMPHOCYTE COUNT 1.8 K/uL (1.0-2.8); MCH 27.7 PG (29.0-34.0); MCHC 31.2 G/DL (30.0-36.0); MCV 88.7 FL (83-99); MEAN PLAT.VOLUME 9.5 uM^3 (9.5-12.4); MONOCYTE (%) 7.1 % (3-12); MONOCYTE COUNT 0.5 K/uL (0-0.8); NEUTROPHIL (%) 57.2 % (45-76); NEUTROPHIL COUNT 3.9 K/uL (1.8-6.4); PLATELET COUNT 388 K/uL (156-360); RBC DIS.WIDTH-CV 15.8 % (11.8-14.6); RBC DIS.WIDTH-SD 50.7 % (39-53); RED BLOOD COUNT 4.08 M/uL (3.80-5.20); WHITE BLOOD COUNT 6.8 K/uL (4.1-10.2)
[2016-09-05 07:08] LABS: ANION GAP 8 MEQ/L (2-14); CHLORIDE 102 MEQ/L (99-109); GFR ESTIMATE (CALCULATED) > 59 mL/min/; GLUCOSE 153 mg/dL (70-99); MAGNESIUM 1.7 mg/dl (1.3-2.7); POTASSIUM 4.4 MEQ/L (3.7-5.4); SAMPLE HEMOLYSIS CHECK 0; SAMPLE ICTERIC CHECK 0; SAMPLE LIPEMIA CHECK 0; SODIUM 135 MEQ/L (136-147); UREA NITROGEN (BUN) 18 mg/dL (9-23)
[2016-09-05 08:30] VITALS: BP 109/66
[2016-09-05 12:32] VITALS: BP 100/60
[2016-09-05 17:49] VITALS: BP 96/70
[2016-09-05 19:00] VITALS: BP 105/56
[2016-09-05 23:09] VITALS: BP 120/58
[2016-09-06 03:32] VITALS: BP 109/58
[2016-09-06 06:44] LABS: HEMATOCRIT 34.5 % (36.0-46.0); MCH 28.5 PG (29.0-34.0); MCHC 31.6 G/DL (30.0-36.0); MCV 90.3 FL (83-99); MEAN PLAT.VOLUME 9.6 uM^3 (9.5-12.4); PLATELET COUNT 369 K/uL (156-360); RBC DIS.WIDTH-CV 15.9 % (11.8-14.6); RBC DIS.WIDTH-SD 51.6 % (39-53); RED BLOOD COUNT 3.82 M/uL (3.80-5.20); WHITE BLOOD COUNT 7.3 K/uL (4.1-10.2)
[2016-09-06 06:47] LABS: POINT-OF-CARE METER ID UU14208750
[2016-09-06 07:20] VITALS: BP 90/57
[2016-09-06 08:08] LABS: ANION GAP 8 MEQ/L (2-14); CHLORIDE 105 MEQ/L (99-109); GFR ESTIMATE (CALCULATED) > 59 mL/min/; GLUCOSE 196 mg/dL (70-99); POTASSIUM 4.5 MEQ/L (3.7-5.4); SAMPLE HEMOLYSIS CHECK 0; SAMPLE ICTERIC CHECK 0; SAMPLE LIPEMIA CHECK 0; SODIUM 137 MEQ/L (136-147); UREA NITROGEN (BUN) 18 mg/dL (9-23)
[2016-09-06 11:35] LABS: POINT-OF-CARE METER ID UU14208750
[2016-09-06 11:37] VITALS: BP 106/51
[2016-09-06 15:37] VITALS: BP 120/60
[2016-09-06 16:31] LABS: POINT-OF-CARE METER ID UU14208750
[2016-09-06 19:27] VITALS: BP 111/57
[2016-09-06 21:36] LABS: POINT-OF-CARE METER ID UU14208750
[2016-09-06 23:17] VITALS: BP 131/73
[2016-09-07 03:35] VITALS: BP 118/72
[2016-09-07 03:50] LABS: HEMATOCRIT 34.1 % (36.0-46.0); MCH 27.6 PG (29.0-34.0); MCHC 30.8 G/DL (30.0-36.0); MCV 89.5 FL (83-99); MEAN PLAT.VOLUME 9.5 uM^3 (9.5-12.4); PLATELET COUNT 372 K/uL (156-360); RBC DIS.WIDTH-CV 15.8 % (11.8-14.6); RBC DIS.WIDTH-SD 51.2 % (39-53); RED BLOOD COUNT 3.81 M/uL (3.80-5.20); WHITE BLOOD COUNT 7.9 K/uL (4.1-10.2)
[2016-09-07 04:02] LABS: CHLORIDE 103 mEq/L (99-109); POTASSIUM 4.5 mEq/L (3.7-5.4); SODIUM 136 mEq/L (136-147)
[2016-09-07 04:03] LABS: GLUCOSE 197 mg/dL (70-99)
[2016-09-07 04:05] LABS: ANION GAP 9 MEQ/L (2-14)
[2016-09-07 04:07] LABS: GFR ESTIMATE (CALCULATED) > 59 mL/min/
[2016-09-07 04:08] LABS: UREA NITROGEN (BUN) 15 mg/dL (9-23)
[2016-09-07 06:38] LABS: POINT-OF-CARE METER ID UU14208750
[2016-09-07 07:25] VITALS: BP 126/64
[2016-09-07 12:10] VITALS: BP 116/52
[2016-09-07 12:14] LABS: POINT-OF-CARE METER ID UU14208750
[2016-09-07 15:53] VITALS: BP 119/56
[2016-09-07 16:01] LABS: POINT-OF-CARE METER ID UU14208750
[2016-09-07 19:13] VITALS: BP 121/63
[2016-09-07 23:41] VITALS: BP 130/72
[2016-09-08 06:06] LABS: MCH 27.5 PG (29.0-34.0); MCHC 30.3 G/DL (30.0-36.0); MCV 90.7 FL (83-99); MEAN PLAT.VOLUME 9.7 uM^3 (9.5-12.4); PLATELET COUNT 376 K/uL (156-360); RBC DIS.WIDTH-CV 15.9 % (11.8-14.6); RBC DIS.WIDTH-SD 52.1 % (39-53); RED BLOOD COUNT 3.75 M/uL (3.80-5.20); WHITE BLOOD COUNT 8.2 K/uL (4.1-10.2)
[2016-09-08 06:31] LABS: POINT-OF-CARE METER ID UU14208750
[2016-09-08 06:32] LABS: ANION GAP 6 MEQ/L (2-14); CHLORIDE 104 MEQ/L (99-109); GFR ESTIMATE (CALCULATED) > 59 mL/min/; GLUCOSE 179 mg/dL (70-99); POTASSIUM 4.4 MEQ/L (3.7-5.4); SAMPLE HEMOLYSIS CHECK 0; SAMPLE ICTERIC CHECK 0; SAMPLE LIPEMIA CHECK 0; SODIUM 138 MEQ/L (136-147); UREA NITROGEN (BUN) 16 mg/dL (9-23)
[2016-09-08 07:15] VITALS: BP 138/72
[2016-09-08 12:04] LABS: POINT-OF-CARE METER ID UU14208750
[2016-09-08 15:30] VITALS: BP 112/62
[2016-09-08 17:26] LABS: POINT-OF-CARE METER ID UU14208750
[2016-09-08 21:26] LABS: POINT-OF-CARE METER ID UU14208750
[2016-09-08 21:31] VITALS: BP 118/57
[2016-09-08 23:22] VITALS: BP 119/60
[2016-09-09 06:13] LABS: HEMATOCRIT 32.5 % (36.0-46.0); MCH 29.1 PG (29.0-34.0); MCHC 32.3 G/DL (30.0-36.0); MEAN PLAT.VOLUME 9.9 uM^3 (9.5-12.4); PLATELET COUNT 359 K/uL (156-360); RBC DIS.WIDTH-SD 52.6 % (39-53); RED BLOOD COUNT 3.61 M/uL (3.80-5.20); WHITE BLOOD COUNT 6.8 K/uL (4.1-10.2)
[2016-09-09 06:28] LABS: POINT-OF-CARE METER ID UU14208750
[2016-09-09 06:41] LABS: ANION GAP 6 MEQ/L (2-14); CHLORIDE 101 MEQ/L (99-109); GFR ESTIMATE (CALCULATED) > 59 mL/min/; GLUCOSE 221 mg/dL (70-99); MAGNESIUM 1.7 mg/dl (1.3-2.7); POTASSIUM 4.4 MEQ/L (3.7-5.4); SAMPLE HEMOLYSIS CHECK 0; SAMPLE ICTERIC CHECK 0; SAMPLE LIPEMIA CHECK 0; SODIUM 136 MEQ/L (136-147); UREA NITROGEN (BUN) 16 mg/dL (9-23)
[2016-09-09 08:15] VITALS: BP 136/72
[2016-09-09 15:05] VITALS: BP 128/62
[2016-09-09 21:08] LABS: POINT-OF-CARE METER ID UU14208750
[2016-09-10 01:39] VITALS: BP 134/50
[2016-09-10 07:29] LABS: POINT-OF-CARE METER ID UU14208750
[2016-09-10 08:43] VITALS: BP 125/58
[2016-09-10 15:50] VITALS: BP 117/60
[2016-09-10 16:15] LABS: POINT-OF-CARE METER ID UU14208750
[2016-09-11 00:03] VITALS: BP 100/45
[2016-09-11 07:02] LABS: HEMATOCRIT 33.8 % (36.0-46.0); MCH 28.5 PG (29.0-34.0); MCHC 31.7 G/DL (30.0-36.0); MCV 90.1 FL (83-99); MEAN PLAT.VOLUME 9.7 uM^3 (9.5-12.4); PLATELET COUNT 366 K/uL (156-360); RBC DIS.WIDTH-CV 16.7 % (11.8-14.6); RBC DIS.WIDTH-SD 54.7 % (39-53); RED BLOOD COUNT 3.75 M/uL (3.80-5.20); WHITE BLOOD COUNT 7.8 K/uL (4.1-10.2)
[2016-09-11 07:24] LABS: ANION GAP 7 MEQ/L (2-14); CHLORIDE 103 MEQ/L (99-109); GFR ESTIMATE (CALCULATED) > 59 mL/min/; GLUCOSE 191 mg/dL (70-99); MAGNESIUM 1.9 mg/dl (1.3-2.7); POTASSIUM 4.5 MEQ/L (3.7-5.4); SAMPLE HEMOLYSIS CHECK 0; SAMPLE ICTERIC CHECK 0; SAMPLE LIPEMIA CHECK 0; SODIUM 137 MEQ/L (136-147); UREA NITROGEN (BUN) 14 mg/dL (9-23)
[2016-09-11 07:35] VITALS: BP 124/60
[2016-09-11 16:36] VITALS: BP 115/70
[2016-09-11 17:07] LABS: POINT-OF-CARE METER ID UU13113675
[2016-09-11 18:33] VITALS: BP 111/56
[2016-09-11 19:44] VITALS: BP 120/50
[2016-09-11 23:16] VITALS: BP 112/60
[2016-09-12 04:15] LABS: BASOPHIL COUNT 0.1 K/uL (0-0.1); EOSINOPHIL (%) 5.9 % (0-5); EOSINOPHIL COUNT 0.5 K/uL (0-0.3); IMMATURE GRANULOCYTE (%) 0.3 % (0.0-0.7); INSTRUMENT ABS NEUTROPHIL CT 5.2 K/uL; LYMPHOCYTE COUNT 1.5 K/uL (1.0-2.8); MCH 28.4 PG (29.0-34.0); MCHC 31.3 G/DL (30.0-36.0); MCV 90.9 FL (83-99); MEAN PLAT.VOLUME 9.9 uM^3 (9.5-12.4); MONOCYTE (%) 8.7 % (3-12); MONOCYTE COUNT 0.7 K/uL (0-0.8); NEUTROPHIL (%) 65.7 % (45-76); NEUTROPHIL COUNT 5.2 K/uL (1.8-6.4); PLATELET COUNT 330 K/uL (156-360); RBC DIS.WIDTH-CV 16.5 % (11.8-14.6); RBC DIS.WIDTH-SD 54.5 % (39-53); RED BLOOD COUNT 3.52 M/uL (3.80-5.20)
[2016-09-12 04:27] LABS: CHLORIDE 104 mEq/L (99-109); POTASSIUM 4.4 mEq/L (3.7-5.4); SODIUM 138 mEq/L (136-147)
[2016-09-12 04:28] LABS: MAGNESIUM 1.8 mg/dL (1.3-2.7)
[2016-09-12 04:29] LABS: GLUCOSE 161 mg/dL (70-99)
[2016-09-12 04:30] LABS: ANION GAP 7 MEQ/L (2-14)
[2016-09-12 04:33] LABS: GFR ESTIMATE (CALCULATED) > 59 mL/min/
[2016-09-12 04:34] LABS: UREA NITROGEN (BUN) 14 mg/dL (9-23)
[2016-09-12 07:30] VITALS: BP 112/62
[2016-09-12 12:00] VITALS: BP 108/58
[2016-09-12 15:10] VITALS: BP 110/56
[2016-09-12 19:07] VITALS: BP 116/60
[2016-09-12 21:50] LABS: POINT-OF-CARE METER ID UU14208750
[2016-09-12 23:29] VITALS: BP 121/63
[2016-09-13 06:51] LABS: POINT-OF-CARE METER ID UU14208750
[2016-09-13 08:10] VITALS: BP 100/58
[2016-09-13] MEDS ORDERED: MORPHINE SULFAT15 MG PO (10:56)
[2016-09-13] MEDS ORDERED: GABAPENTIN600 MG PO (10:56)
== END 2016-09-13 12:55 | disposition home health service (06) | DRG 493 ==
LOC: EME 09:42 → 2EASTP 14:38 → EDOF 14:38 → 2EASTP 17:42
PROVIDERS: Emergency Medicine; Hospitalist; Internal Medicine; Internal Medicine Infectious Disease; Physician Assistant
PROC: 0SPF04Z Removal of Internal Fixation Device from Right Ankle Joint, Open Approach (ICD-10-PCS; principal; 2016-09-11)
DX: T84.624A Infection and inflammatory reaction due to internal fixation device of right fibula, initial encounter (principal); L03.115 Cellulitis of right lower limb; B95.62 Methicillin resistant Staphylococcus aureus infection as the cause of diseases classified elsewhere; T84.126A Displacement of internal fixation device of bone of right lower leg, initial encounter; Y83.8 Other surgical procedures as the cause of abnormal reaction of the patient, or of later complication, without mention of misadventure at the time of the procedure; E11.622 Type 2 diabetes mellitus with other skin ulcer; L97.319 Non-pressure chronic ulcer of right ankle with unspecified severity; E87.5 Hyperkalemia; E11.42 Type 2 diabetes mellitus with diabetic polyneuropathy; I11.0 Hypertensive heart disease with heart failure; I50.32 Chronic diastolic (congestive) heart failure; J44.9 Chronic obstructive pulmonary disease, unspecified; Z99.81 Dependence on supplemental oxygen; G89.29 Other chronic pain; M06.9 Rheumatoid arthritis, unspecified; I25.10 Atherosclerotic heart disease of native coronary artery without angina pectoris; E78.5 Hyperlipidemia, unspecified; G43.909 Migraine, unspecified, not intractable, without status migrainosus; K21.9 Gastro-esophageal reflux disease without esophagitis; R26.2 Difficulty in walking, not elsewhere classified; F32.9 Major depressive disorder, single episode, unspecified; I25.2 Old myocardial infarction; F17.200 Nicotine dependence, unspecified, uncomplicated; Z79.4 Long term (current) use of insulin; Z79.84 Long term (current) use of oral hypoglycemic drugs; Z80.3 Family history of malignant neoplasm of breast; Z86.718 Personal history of other venous thrombosis and embolism; Z86.73 Personal history of transient ischemic attack (TIA), and cerebral infarction without residual deficits; Z90.49 Acquired absence of other specified parts of digestive tract; Z93.3 Colostomy status; Z95.5 Presence of coronary angioplasty implant and graft
CPT/HCPCS: 73610; 73720; 76937; 80048; 80202; 82948; 83735; 84100; 85025; 85027; 85651; 86140; 87040; 87070; 87075; 87077; 87147; 87186; 87205; 93926; 94640; 94640 76; 97530 GO; 97530 GP; 99202; 99281; 99284; 99285; A6260; J0330; J0690; J1650; J1815; J2270; J2405; J3010; J3370; J3475; J7030

== ENCOUNTER 2016-10-08 18:53 | Emergency (ER) | payer OTHER ==
[~2016-10-08] VITALS: Ht 147.3 cm; Wt 60.6 kg
[~2016-10-08 18:53] MED LIST changes: +GABAPENTIN600 MG PO; +MORPHINE SULFAT15 MG PO; +NYSTOP60 GM TP; +PRADAXA150 MG PO
[2016-10-08 20:43] VITALS: BP 94/52
== END 2016-10-08 20:44 | disposition home or self-care (01) ==
LOC: RME 18:53 → EME 18:53 → RME 20:44
DX: L55.1 Sunburn of second degree (principal)
CPT/HCPCS: 99281; 99283

== ENCOUNTER 2017-02-13 03:36 | Inpatient (IN) | payer OTHER ==
[~2017-02-13] VITALS: Ht 147.3 cm; Wt 77.4 kg
[2017-02-13 04:39] LABS: HEMATOCRIT 40.1 % (36.0-46.0); MCH 31.5 PG (29.0-34.0); MCHC 32.4 G/DL (30.0-36.0); MCV 97.1 FL (83-99); PLATELET COUNT 263 K/uL (156-360); RBC DIS.WIDTH-CV 13.4 % (11.8-14.6); RED BLOOD COUNT 4.13 M/uL (3.80-5.20)
[2017-02-13 04:44] LABS: INTER. NORMALIZED RATIO 1.3
[2017-02-13 04:47] LABS: PTT 51.8 SEC (25-37)
[2017-02-13 04:53] LABS: ALBUMIN 3.7 g/dL (3.2-4.8); CHLORIDE 98 mEq/L (99-109); POTASSIUM 4.2 mEq/L (3.7-5.4); SODIUM 139 mEq/L (136-147)
[2017-02-13 04:56] LABS: GLUCOSE 88 mg/dL (70-99); TOTAL PROTEIN 6.8 g/dL (6.4-8.3)
[2017-02-13 04:58] LABS: TOTAL BILIRUBIN 0.3 mg/dL (0.0-1.0)
[2017-02-13 04:59] LABS: ALKALINE PHOSPHATASE 67 IU/L (3-129); CREATININE 1.2 mg/dL (0.6-1.3); GFR ESTIMATE (CALCULATED) 48 mL/min/
[2017-02-13 05:00] LABS: UREA NITROGEN (BUN) 22 mg/dL (9-23)
[2017-02-13 05:01] LABS: AST (GOT) 24 IU/L (2-34); TROP-I INTERPRETATION NEGATIVE; TROPONIN-I 0.02 ng/mL (0.0-0.30)
[2017-02-13 05:02] LABS: ALT (GPT) 19 IU/L (3-49)
[2017-02-13 05:03] LABS: LIPASE 25 U/L (1.0-51.0)
[2017-02-13 09:10] LABS: HEMATOCRIT 39.7 % (36.0-46.0); HEMOGLOBIN 12.7 G/DL (11.9-15.5); MCV 98.3 FL (83-99)
[2017-02-13 09:35] LABS: TROP-I INTERPRETATION NEGATIVE; TROPONIN-I 0.01 ng/mL (0.0-0.30)
[2017-02-13] MEDS ORDERED: LOPRESSOR25 MG PO (10:45)
[2017-02-13] MEDS ORDERED: NICOTINE PATCH1 EAC1 TD (10:48)
[2017-02-13] MEDS ORDERED: OXYCODONE-APAP1 EAC6 PO (10:48)
[2017-02-13] MEDS ORDERED: LISINOPRIL2.5 MG PO (10:48)
[2017-02-13] MEDS ORDERED: TEMAZEPAM15 MG PO (10:49)
[2017-02-13] MEDS ORDERED: SPIRIVA RESPIMAT4 GM IH (10:49)
[2017-02-13] MEDS ORDERED: FLONASE16 G1 BOTH NARES (10:50)
[2017-02-13] MEDS ORDERED: CENTRUM ADULTS1 EACH PO (10:56)
[2017-02-13] MEDS ORDERED: ALBUTEROL2.5 MG/3 M IH (10:56)
[2017-02-13 13:44] VITALS: BP 95/45
[2017-02-13 14:24] LABS: HEMATOCRIT 35.2 % (36.0-46.0); HEMOGLOBIN 11.3 G/DL (11.9-15.5); MCV 98.6 FL (83-99)
[2017-02-13 14:44] LABS: TROP-I INTERPRETATION NEGATIVE; TROPONIN-I 0.01 ng/mL (0.0-0.30)
[2017-02-13 15:16] VITALS: BP 95/62
[2017-02-13 19:19] VITALS: BP 113/58
[2017-02-13 20:30] LABS: HEMATOCRIT 34.2 % (36.0-46.0); HEMOGLOBIN 10.8 G/DL (11.9-15.5)
[2017-02-13 23:27] VITALS: BP 123/55
[2017-02-14 03:15] VITALS: BP 106/53
[2017-02-14 07:01] LABS: HEMATOCRIT 33.6 % (36.0-46.0); HEMOGLOBIN 10.5 G/DL (11.9-15.5); MCH 31.1 PG (29.0-34.0); MCHC 31.3 G/DL (30.0-36.0); MCV 99.4 FL (83-99); PLATELET COUNT 218 K/uL (156-360); RBC DIS.WIDTH-CV 13.2 % (11.8-14.6); RBC DIS.WIDTH-SD 48.4 % (39-53); RED BLOOD COUNT 3.38 M/uL (3.80-5.20); WHITE BLOOD COUNT 8.2 K/uL (4.1-10.2)
[2017-02-14 07:34] LABS: CHLORIDE 109 MEQ/L (99-109); GLUCOSE 64 mg/dL (70-99); PHOSPHORUS 2.6 mg/dL (2.5-4.9); POTASSIUM 4.1 MEQ/L (3.7-5.4); SODIUM 141 MEQ/L (136-147); UREA NITROGEN (BUN) 8 mg/dL (9-23)
[2017-02-14 07:39] LABS: CREATININE 0.6 MG/DL (0.6-1.3); GFR ESTIMATE (CALCULATED) > 59 mL/min/
[2017-02-14 11:30] VITALS: BP 130/62
[2017-02-14 14:33] LABS: HEMATOCRIT 34.4 % (36.0-46.0); HEMOGLOBIN 10.6 G/DL (11.9-15.5); MCV 100.6 FL (83-99)
[2017-02-14 15:59] VITALS: BP 116/61
[2017-02-14 19:10] VITALS: BP 156/67
[2017-02-14 21:13] LABS: HEMATOCRIT 33.4 % (36.0-46.0); HEMOGLOBIN 10.4 G/DL (11.9-15.5); MCV 98.8 FL (83-99)
[2017-02-15 00:50] VITALS: BP 140/63
[2017-02-15 04:35] VITALS: BP 158/70
[2017-02-15 07:02] LABS: HEMATOCRIT 33.6 % (36.0-46.0); HEMOGLOBIN 10.5 G/DL (11.9-15.5); MCH 30.9 PG (29.0-34.0); MCHC 31.3 G/DL (30.0-36.0); MCV 98.8 FL (83-99); PLATELET COUNT 222 K/uL (156-360); RBC DIS.WIDTH-CV 13.1 % (11.8-14.6); RBC DIS.WIDTH-SD 47.6 % (39-53); WHITE BLOOD COUNT 7.9 K/uL (4.1-10.2)
[2017-02-15 07:24] LABS: CHLORIDE 107 MEQ/L (99-109); CREATININE 0.6 MG/DL (0.6-1.3); GFR ESTIMATE (CALCULATED) > 59 mL/min/; POTASSIUM 4.1 MEQ/L (3.7-5.4); SODIUM 141 MEQ/L (136-147); UREA NITROGEN (BUN) 5 mg/dL (9-23)
[2017-02-15 07:29] LABS: GLUCOSE 176 mg/dL (70-99)
[2017-02-15 08:48] VITALS: BP 166/72
[2017-02-15] MEDS ORDERED: PROTONIX40 MG PO (10:28)
[2017-02-15] MEDS ORDERED: CIPRO500 MG PO (10:29)
[2017-02-15] MEDS ORDERED: FLAGYL500 MG PO (10:34)
[2017-02-15 11:18] VITALS: BP 132/63
== END 2017-02-15 12:56 | disposition home or self-care (01) | DRG 378 ==
LOC: EME 03:36 → 3EAST 08:08 → EDOF 08:08 → ENRESERV 08:09 → 3EAST 13:16
PROVIDERS: Emergency Medicine; Hospitalist; Internal Medicine Gastroenterology; Physician Assistant
PROC: 0DB68ZX Excision of Stomach, Via Natural or Artificial Opening Endoscopic, Diagnostic (ICD-10-PCS; principal; 2017-02-14)
DX: K92.2 Gastrointestinal hemorrhage, unspecified (principal); I95.9 Hypotension, unspecified; K25.3 Acute gastric ulcer without hemorrhage or perforation; K25.7 Chronic gastric ulcer without hemorrhage or perforation; K26.9 Duodenal ulcer, unspecified as acute or chronic, without hemorrhage or perforation; K52.9 Noninfective gastroenteritis and colitis, unspecified; K29.70 Gastritis, unspecified, without bleeding; E86.1 Hypovolemia; E87.2 Acidosis; E11.649 Type 2 diabetes mellitus with hypoglycemia without coma; I11.0 Hypertensive heart disease with heart failure; I50.32 Chronic diastolic (congestive) heart failure; J44.9 Chronic obstructive pulmonary disease, unspecified; G43.909 Migraine, unspecified, not intractable, without status migrainosus; K21.9 Gastro-esophageal reflux disease without esophagitis; E78.5 Hyperlipidemia, unspecified; F17.210 Nicotine dependence, cigarettes, uncomplicated; G89.29 Other chronic pain; I25.10 Atherosclerotic heart disease of native coronary artery without angina pectoris; F32.9 Major depressive disorder, single episode, unspecified; F41.9 Anxiety disorder, unspecified; E66.9 Obesity, unspecified; Z93.2 Ileostomy status; Z90.49 Acquired absence of other specified parts of digestive tract; Z95.5 Presence of coronary angioplasty implant and graft; Z79.82 Long term (current) use of aspirin; Z99.81 Dependence on supplemental oxygen; I25.2 Old myocardial infarction; Z86.718 Personal history of other venous thrombosis and embolism; Z86.73 Personal history of transient ischemic attack (TIA), and cerebral infarction without residual deficits; Z95.828 Presence of other vascular implants and grafts; Z79.891 Long term (current) use of opiate analgesic; Z68.35 Body mass index [BMI] 35.0-35.9, adult; Z79.4 Long term (current) use of insulin; Z79.01 Long term (current) use of anticoagulants
CPT/HCPCS: 70450; 71010; 74177; 80048; 80053; 80069; 81003; 82140; 82948; 83605; 83690; 83880; 84484; 85014; 85018; 85027; 85610; 85730; 86850; 86900; 86901; 87040; 88305; 88342 TC; 93005; 94640; 94640 76; 94799; 99281; 99285; C9113; J0744; J1815; J2250; J2310; J2405; J7030; S0030

== ENCOUNTER 2017-03-10 21:53 | Observation (INO) | payer OTHER ==
[~2017-03-10] VITALS: Ht 147.3 cm; Wt 72.8 kg
[~2017-03-10 21:53] MED LIST changes: +ALBUTEROL2.5 MG/3 M IH; +CENTRUM ADULTS1 EACH PO; +CIPRO500 MG PO; +FLAGYL500 MG PO; +NICOTINE PATCH1 EAC1 TD; +PROTONIX40 MG PO; +SPIRIVA RESPIMAT4 GM IH; +TEMAZEPAM15 MG PO
[2017-03-10 22:55] LABS: CARBON DIOXIDE (BICARBONATE) 29.8 MEQ/L (20-31); HEMOGLOBIN 14.6 G/DL (11.9-15.5); MCH 31.2 PG (29.0-34.0); MCHC 33.2 G/DL (30.0-36.0); PLATELET COUNT 256 K/uL (156-360); RBC DIS.WIDTH-CV 13.4 % (11.8-14.6); RBC DIS.WIDTH-SD 45.6 % (39-53); RED BLOOD COUNT 4.68 M/uL (3.80-5.20); WHITE BLOOD COUNT 9.5 K/uL (4.1-10.2)
[2017-03-10 23:02] LABS: ALBUMIN 4.1 g/dL (3.2-4.8)
[2017-03-10 23:03] LABS: CHLORIDE 100 mEq/L (99-109); POTASSIUM 4.4 mEq/L (3.7-5.4); SODIUM 135 mEq/L (136-147)
[2017-03-10 23:05] LABS: GLUCOSE 176 mg/dL (70-99); TOTAL PROTEIN 8.1 g/dL (6.4-8.3)
[2017-03-10 23:07] LABS: TOTAL BILIRUBIN 0.6 mg/dL (0.0-1.0)
[2017-03-10 23:08] LABS: ALKALINE PHOSPHATASE 82 IU/L (3-129)
[2017-03-10 23:09] LABS: CREATININE 0.8 mg/dL (0.6-1.3); GFR ESTIMATE (CALCULATED) > 59 mL/min/
[2017-03-10 23:10] LABS: AST (GOT) 26 IU/L (2-34); UREA NITROGEN (BUN) 13 mg/dL (9-23)
[2017-03-10 23:12] LABS: ALT (GPT) 17 IU/L (3-49); LIPASE 10 U/L (1.0-51.0)
[2017-03-10 23:39] LABS: APPEARANCE CLEAR ((CLEAR)); BILIRUBIN NEGATIVE; BLOOD MODERATE; COLOR YELLOW ((YELLOW)); GLUCOSE (STRIP) NEGATIVE; KETONES 5; LEUKOCYTES NEGATIVE; NITRITE NEGATIVE; PROTEIN (STRIP) NEGATIVE; SPECIFIC GRAVITY 1.018 (1.000-1.030); UROBILINOGEN 0.2 MG/DL (0.2-1.0)
[2017-03-10 23:40] LABS: BACTERIA NONE SEEN /HPF; EPITHELIAL CELLS RARE /HPF; MUCUS TRACE /LPF; RED BLOOD CELLS 0-5 /HPF (0-5); UCUL ADDED? NO; WHITE BLOOD CELLS 0-5 /HPF (0-5)
[2017-03-11 06:45] LABS: HEMATOCRIT 38.7 % (36.0-46.0); MCH 30.8 PG (29.0-34.0); MCHC 32.3 G/DL (30.0-36.0); MCV 95.3 FL (83-99); PLATELET COUNT 208 K/uL (156-360); RBC DIS.WIDTH-CV 13.7 % (11.8-14.6); RED BLOOD COUNT 4.06 M/uL (3.80-5.20); WHITE BLOOD COUNT 6.3 K/uL (4.1-10.2)
[2017-03-11 06:47] LABS: HEMOGLOBIN 12.5 G/DL (11.9-15.5)
[2017-03-11 07:11] VITALS: BP 134/65
[2017-03-11 07:22] LABS: ALBUMIN 3.4 G/DL (3.2-4.8); ALKALINE PHOSPHATASE 60 IU/L (3-129); ALT (GPT) 13 IU/L (3-49); AST (GOT) 19 IU/L (2-34); CHLORIDE 103 MEQ/L (99-109); CREATININE 0.7 MG/DL (0.6-1.3); GFR ESTIMATE (CALCULATED) > 59 mL/min/; GLUCOSE 174 mg/dL (70-99); POTASSIUM 3.7 MEQ/L (3.7-5.4); SODIUM 137 MEQ/L (136-147); TOTAL BILIRUBIN 0.4 MG/DL (0.0-1.0); TOTAL PROTEIN 6.7 G/DL (6.4-8.3); UREA NITROGEN (BUN) 10 mg/dL (9-23)
[2017-03-11 11:21] VITALS: BP 120/54
[2017-03-11 15:30] VITALS: BP 138/65
[2017-03-11 19:58] VITALS: BP 152/71
[2017-03-12 00:04] VITALS: BP 170/72
[2017-03-12 07:46] VITALS: BP 121/61
== END 2017-03-12 12:47 | disposition home or self-care (01) ==
LOC: EME → EDBD 21:53 → EDOF 03-11 01:27 → 5WEST 03-11 01:27 → EDOF 03-11 01:27 → ENRESERV 03-11 01:28 → 5WEST 03-11 07:06
PROVIDERS: Emergency Medicine; Nurse Practitioner Adult Health
DX: K52.9 Noninfective gastroenteritis and colitis, unspecified (principal); I25.10 Atherosclerotic heart disease of native coronary artery without angina pectoris; Z95.5 Presence of coronary angioplasty implant and graft; I11.0 Hypertensive heart disease with heart failure; I50.9 Heart failure, unspecified; J44.9 Chronic obstructive pulmonary disease, unspecified; Z86.73 Personal history of transient ischemic attack (TIA), and cerebral infarction without residual deficits; Z86.718 Personal history of other venous thrombosis and embolism; E11.9 Type 2 diabetes mellitus without complications; Z79.4 Long term (current) use of insulin; Z79.82 Long term (current) use of aspirin; Z79.01 Long term (current) use of anticoagulants; Z93.3 Colostomy status; F17.200 Nicotine dependence, unspecified, uncomplicated
CPT/HCPCS: 74177; 80053; 81003; 82010; 82803; 83690; 85027; 87502; 94640; 94640 76; 99281; 99285; G0378; J2270; J2405; J3010; J7030

== ENCOUNTER 2017-04-30 17:22 | Inpatient (IN) | payer OTHER ==
[~2017-04-30] VITALS: Ht 167.6 cm; Wt 72.7 kg
[2017-04-30 17:50] LABS: HEMATOCRIT 41.4 % (36.0-46.0); HEMOGLOBIN 13.6 G/DL (11.9-15.5); MCH 31.1 PG (29.0-34.0); MCHC 32.9 G/DL (30.0-36.0); MCV 94.5 FL (83-99); PLATELET COUNT 348 K/uL (156-360); RBC DIS.WIDTH-SD 51.8 % (39-53); RED BLOOD COUNT 4.38 M/uL (3.80-5.20); WHITE BLOOD COUNT 12.8 K/uL (4.1-10.2)
[2017-04-30 17:58] LABS: INTER. NORMALIZED RATIO 1.1
[2017-04-30 17:59] LABS: ALBUMIN 3.9 g/dL (3.2-4.8); CHLORIDE 94 mEq/L (99-109); SODIUM 133 mEq/L (136-147)
[2017-04-30 18:01] LABS: GLUCOSE 197 mg/dL (70-99); TOTAL PROTEIN 7.5 g/dL (6.4-8.3)
[2017-04-30 18:02] LABS: PTT 26.3 SEC (25-37)
[2017-04-30 18:03] LABS: TOTAL BILIRUBIN 0.5 mg/dL (0.0-1.0)
[2017-04-30 18:05] LABS: ALKALINE PHOSPHATASE 87 IU/L (3-129); CREATININE 2.4 mg/dL (0.6-1.3); GFR ESTIMATE (CALCULATED) 22 mL/min/
[2017-04-30 18:06] LABS: UREA NITROGEN (BUN) 41 mg/dL (9-23)
[2017-04-30 18:07] LABS: AST (GOT) 39 IU/L (2-34)
[2017-04-30 18:08] LABS: ALT (GPT) 35 IU/L (3-49)
[2017-04-30] MEDS ORDERED: PROAIR HFA8.5 GM IH (20:30)
[2017-04-30] MEDS ORDERED: ZOCOR40 MG PO (20:31)
[2017-04-30] MEDS ORDERED: ASPIR 8181 M1 PO (20:32)
[2017-04-30] MEDS ORDERED: ELAVIL150 MG PO (20:33)
[2017-04-30] MEDS ORDERED: LEXAPRO20 MG PO (20:33)
[2017-04-30] MEDS ORDERED: ADVAIR HFA120 INHALA IH (20:34)
[2017-04-30] MEDS ORDERED: TRAVATAN Z5 ML BOTH EYES (20:35)
[2017-04-30] MEDS ORDERED: HUMALOG MI100 UNIT/1 SC ×2 (20:40→20:41)
[2017-04-30] MEDS ORDERED: NEURONTIN600 MG PO (20:42)
[2017-04-30] MEDS ORDERED: PROTONIX40 MG PO (20:49)
[2017-04-30] MEDS ORDERED: COLACE100 MG PO (20:54)
[2017-04-30] MEDS ORDERED: PROVENTIL HFA6.7 GM IH (20:56)
[2017-04-30] MEDS ORDERED: VITAMIN B-1100 MG PO (20:57)
[2017-04-30] MEDS ORDERED: KENALOG,ARISTOC80 GM TP (20:59)
[2017-04-30] MEDS ORDERED: VITAMIN D31000 UNIT PO (21:00)
[2017-05-01 01:09] LABS: HEMATOCRIT 32.7 % (36.0-46.0); HEMOGLOBIN 10.8 G/DL (11.9-15.5); MCV 94.2 FL (83-99)
[2017-05-01 04:59] LABS: APPEARANCE CLEAR ((CLEAR)); BILIRUBIN NEGATIVE; BLOOD NEGATIVE; COLOR YELLOW ((YELLOW)); GLUCOSE (STRIP) 50; KETONES NEGATIVE; LEUKOCYTES NEGATIVE; NITRITE NEGATIVE; PROTEIN (STRIP) NEGATIVE; UCUL ADDED? NO; UROBILINOGEN 0.2 MG/DL (0.2-1.0)
[2017-05-01 05:34] LABS: HEMOGLOBIN 10.9 G/DL (11.9-15.5); MCV 94.2 FL (83-99)
[2017-05-01 05:59] LABS: ALBUMIN 3.2 G/DL (3.2-4.8); ALKALINE PHOSPHATASE 57 IU/L (3-129); ALT (GPT) 21 IU/L (3-49); AST (GOT) 20 IU/L (2-34); CHLORIDE 101 MEQ/L (99-109); GFR ESTIMATE (CALCULATED) > 59 mL/min/; GLUCOSE 258 mg/dL (70-99); MAGNESIUM 1.7 mg/dl (1.3-2.7); PHOSPHORUS 2.2 mg/dL (2.5-4.9); POTASSIUM 3.9 MEQ/L (3.7-5.4); SODIUM 135 MEQ/L (136-147); TOTAL BILIRUBIN 0.5 MG/DL (0.0-1.0); TOTAL PROTEIN 6.1 G/DL (6.4-8.3); UREA NITROGEN (BUN) 25 mg/dL (9-23)
[2017-05-01 07:59] VITALS: BP 135/63
[2017-05-01 09:20] LABS: MCH 30.2 PG (29.0-34.0); MCHC 31.5 G/DL (30.0-36.0); PLATELET COUNT 275 K/uL (156-360); RBC DIS.WIDTH-SD 53.1 % (39-53); RED BLOOD COUNT 3.64 M/uL (3.80-5.20); WHITE BLOOD COUNT 8.9 K/uL (4.1-10.2)
[2017-05-01 10:40] LABS: STOOL OCCULT BLD 1ST SPECIMEN POSITIVE
[2017-05-01 15:59] LABS: HEMOGLOBIN 11.2 G/DL (11.9-15.5)
[2017-05-01 16:25] VITALS: BP 125/58
[2017-05-01 19:11] LABS: C DIFF TOXIN NEGATIVE (NEGATIVE)
[2017-05-01 19:24] VITALS: BP 122/83
[2017-05-02] VITALS (7 sets, daily range): BP systolic 131–161; BP diastolic 6–67
[2017-05-02 07:00] LABS: BASOPHIL (%) 0.7 % (0-1); BASOPHIL COUNT 0.1 K/uL (0-0.1); EOSINOPHIL (%) 3.6 % (0-5); EOSINOPHIL COUNT 0.3 K/uL (0-0.3); HEMATOCRIT 32.5 % (36.0-46.0); HEMOGLOBIN 10.1 G/DL (11.9-15.5); IMMATURE GRANULOCYTE (%) 0.4 % (0.0-0.7); LYMPHOCYTE (%) 17.3 % (15-42); LYMPHOCYTE COUNT 1.5 K/uL (1.0-2.8); MCH 30.3 PG (29.0-34.0); MCHC 31.1 G/DL (30.0-36.0); MCV 97.6 FL (83-99); MONOCYTE (%) 8.4 % (3-12); MONOCYTE COUNT 0.8 K/uL (0-0.8); NEUTROPHIL (%) 69.6 % (45-76); NEUTROPHIL COUNT 6.2 K/uL (1.8-6.4); PLATELET COUNT 261 K/uL (156-360); RBC DIS.WIDTH-SD 53.7 % (39-53); RED BLOOD COUNT 3.33 M/uL (3.80-5.20); WHITE BLOOD COUNT 8.9 K/uL (4.1-10.2)
[2017-05-02 08:02] LABS: CHLORIDE 107 MEQ/L (99-109); GFR ESTIMATE (CALCULATED) > 59 mL/min/; GLUCOSE 204 mg/dL (70-99); POTASSIUM 4.2 MEQ/L (3.7-5.4); SODIUM 140 MEQ/L (136-147); UREA NITROGEN (BUN) 8 mg/dL (9-23)
[2017-05-02 08:14] LABS: CREATININE 0.5 MG/DL (0.6-1.3)
[2017-05-02 18:20] LABS: CHLORIDE 104 MEQ/L (99-109); CREATININE 0.6 MG/DL (0.6-1.3); GFR ESTIMATE (CALCULATED) > 59 mL/min/; GLUCOSE 259 mg/dL (70-99); POTASSIUM 4.3 MEQ/L (3.7-5.4); SODIUM 137 MEQ/L (136-147); UREA NITROGEN (BUN) 5 mg/dL (9-23)
[2017-05-03 03:40] VITALS: BP 128/60
[2017-05-03 06:47] LABS: BASOPHIL (%) 0.8 % (0-1); BASOPHIL COUNT 0.1 K/uL (0-0.1); EOSINOPHIL (%) 6.3 % (0-5); EOSINOPHIL COUNT 0.5 K/uL (0-0.3); HEMATOCRIT 33.9 % (36.0-46.0); HEMOGLOBIN 10.4 G/DL (11.9-15.5); IMMATURE GRANULOCYTE (%) 0.4 % (0.0-0.7); LYMPHOCYTE (%) 23.6 % (15-42); LYMPHOCYTE COUNT 1.9 K/uL (1.0-2.8); MCH 29.5 PG (29.0-34.0); MCHC 30.7 G/DL (30.0-36.0); MONOCYTE COUNT 0.7 K/uL (0-0.8); NEUTROPHIL (%) 59.9 % (45-76); NEUTROPHIL COUNT 4.7 K/uL (1.8-6.4); PLATELET COUNT 287 K/uL (156-360); RBC DIS.WIDTH-CV 14.6 % (11.8-14.6); RED BLOOD COUNT 3.53 M/uL (3.80-5.20); WHITE BLOOD COUNT 7.9 K/uL (4.1-10.2)
[2017-05-03 07:32] VITALS: BP 136/63
[2017-05-03] MEDS ORDERED: CIPRO500 MG PO (12:07)
[2017-05-03] MEDS ORDERED: FLAGYL500 MG PO (12:07)
== END 2017-05-03 13:08 | disposition home or self-care (01) | DRG 392 ==
LOC: EME 17:22 → 5SOUTH 21:08 → EDOF 21:08 → ENRESERV 21:09 → 5SOUTH 22:20 → ENPENDDIS 05-03 12:15 → 5SOUTH 05-03 13:08
PROVIDERS: Emergency Medicine; Hospitalist; Physician Assistant; Physician Assistant Medical; Student in an Organized Health Care Education/Training Program
DX: A09 Infectious gastroenteritis and colitis, unspecified (principal); K31.819 Angiodysplasia of stomach and duodenum without bleeding; N17.9 Acute kidney failure, unspecified; T18.128A Food in esophagus causing other injury, initial encounter; E87.1 Hypo-osmolality and hyponatremia; J96.12 Chronic respiratory failure with hypercapnia; J44.9 Chronic obstructive pulmonary disease, unspecified; Z99.81 Dependence on supplemental oxygen; E11.40 Type 2 diabetes mellitus with diabetic neuropathy, unspecified; E11.65 Type 2 diabetes mellitus with hyperglycemia; I11.0 Hypertensive heart disease with heart failure; I50.32 Chronic diastolic (congestive) heart failure; I95.9 Hypotension, unspecified; I27.20 Pulmonary hypertension, unspecified; I36.1 Nonrheumatic tricuspid (valve) insufficiency; E86.0 Dehydration; K29.70 Gastritis, unspecified, without bleeding; K44.9 Diaphragmatic hernia without obstruction or gangrene; I25.10 Atherosclerotic heart disease of native coronary artery without angina pectoris; E78.5 Hyperlipidemia, unspecified; K80.20 Calculus of gallbladder without cholecystitis without obstruction; D64.9 Anemia, unspecified; K21.9 Gastro-esophageal reflux disease without esophagitis; I25.2 Old myocardial infarction; M06.9 Rheumatoid arthritis, unspecified; H40.9 Unspecified glaucoma; G89.29 Other chronic pain; G43.909 Migraine, unspecified, not intractable, without status migrainosus; F32.9 Major depressive disorder, single episode, unspecified; F41.9 Anxiety disorder, unspecified; F17.210 Nicotine dependence, cigarettes, uncomplicated; Z71.6 Tobacco abuse counseling; Z93.2 Ileostomy status; Z86.73 Personal history of transient ischemic attack (TIA), and cerebral infarction without residual deficits; Z87.19 Personal history of other diseases of the digestive system; Z87.11 Personal history of peptic ulcer disease; Z86.718 Personal history of other venous thrombosis and embolism; Z86.14 Personal history of Methicillin resistant Staphylococcus aureus infection; Z95.5 Presence of coronary angioplasty implant and graft; Z95.828 Presence of other vascular implants and grafts; Z90.49 Acquired absence of other specified parts of digestive tract; Z90.710 Acquired absence of both cervix and uterus; Z79.891 Long term (current) use of opiate analgesic; Z79.01 Long term (current) use of anticoagulants; Z79.82 Long term (current) use of aspirin; Z79.4 Long term (current) use of insulin
CPT/HCPCS: 74176; 76770; 80048; 80048 91; 80053; 81003; 82272; 82436; 82575; 82948; 83735; 83930; 83935; 84100; 84133; 84300; 85014; 85018; 85025; 85027; 85610; 85652; 85730; 86850; 86900; 86901; 87040; 87493; 88305; 88342 TC; 94640; 94640 76; 94799; 99202; 99281; 99285; C9113; J0744; J1815; J2270; J7030; J7120; S0030

== ENCOUNTER 2017-06-07 13:10 | Emergency (ER) | payer OTHER ==
[~2017-06-07] VITALS: Ht 147.3 cm; Wt 72.7 kg
[~2017-06-07 13:10] MED LIST changes: +HUMALOG MI100 UNIT/1 SC; +KENALOG,ARISTOC80 GM TP; +NEURONTIN600 MG PO; +PROVENTIL HFA6.7 GM IH; +VITAMIN D31000 UNIT PO
[2017-06-07 14:00] LABS: HEMATOCRIT 39.1 % (36.0-46.0); HEMOGLOBIN 12.8 G/DL (11.9-15.5); MCH 31.4 PG (29.0-34.0); MCHC 32.7 G/DL (30.0-36.0); MCV 95.8 FL (83-99); PLATELET COUNT 225 K/uL (156-360); RBC DIS.WIDTH-CV 14.9 % (11.8-14.6); RBC DIS.WIDTH-SD 52.1 % (39-53); RED BLOOD COUNT 4.08 M/uL (3.80-5.20)
[2017-06-07] MEDS ORDERED: KEFLEX500 MG PO (14:49)
[2017-06-07] MEDS ORDERED: BACTRIM,SEPT1 TABLET PO (14:49)
[2017-06-07 15:25] VITALS: BP 118/61
== END 2017-06-07 15:31 | disposition home or self-care (01) ==
LOC: EME 13:10
PROVIDERS: Physician Assistant Medical
DX: L03.115 Cellulitis of right lower limb (principal); E11.9 Type 2 diabetes mellitus without complications; J44.9 Chronic obstructive pulmonary disease, unspecified; I10 Essential (primary) hypertension; K21.9 Gastro-esophageal reflux disease without esophagitis; I25.2 Old myocardial infarction; I25.10 Atherosclerotic heart disease of native coronary artery without angina pectoris; F41.9 Anxiety disorder, unspecified; F32.9 Major depressive disorder, single episode, unspecified; F17.200 Nicotine dependence, unspecified, uncomplicated; Z79.52 Long term (current) use of systemic steroids; Z79.891 Long term (current) use of opiate analgesic; Z79.82 Long term (current) use of aspirin; Z79.4 Long term (current) use of insulin; Z95.5 Presence of coronary angioplasty implant and graft; Z93.3 Colostomy status; Z87.01 Personal history of pneumonia (recurrent); Z86.73 Personal history of transient ischemic attack (TIA), and cerebral infarction without residual deficits; Z90.49 Acquired absence of other specified parts of digestive tract; Z90.710 Acquired absence of both cervix and uterus; Z88.8 Allergy status to other drugs, medicaments and biological substances
CPT/HCPCS: 73630; 80048; 81003; 85027; 99281; 99284